=== PATIENT | male | born 1945 | race Caucasian/White ===

== ENCOUNTER → 2017-07-13 09:16 | Outpatient (CLI) | payer MEDICARE, OTHER, SELFPAY ==
[2017-07-13 11:02] LABS: ALB/GLOB Ratio 1.1 RATIO (0.9-2.4); AST(SGOT) 18 U/L (15-37); Alanine Aminotransfer ALT/SGPT 24 U/L (16-61); Albumin, Serum 4.1 g/dL (3.2-5.0); Alkaline Phosphatase 82 U/L (45-117); Anion Gap 4 (5-15); BUN 22 mg/dL (7-18); BUN/Creat Ratio 25.4 RATIO (10-20); Calcium,Total 8.6 mg/dL (8.5-10.1); Chloride 104 mmol/L (98-107); Cholesterol 165 mg/dL (200); Creatinine, Serum 0.87 mg/dL (0.70-1.30); EST Glomerular Filtration Rate 92 mL/min (>60); Est Glom Filt Rate - Afr Amer 111 mL/min (>60); Globulin 3.9 g/dL (2.2-4.2); Glucose 154 mg/dL (74-106); High Density Lipoprotein 42 mg/dL; Potassium 3.8 mmol/L (3.5-5.1); Sodium Level 139 mmol/L (136-145); Triglycerides 144 mg/dL; Very Low Density Lipoprotein 29 mg/dL (5-40)
== END ==
PROVIDERS: Family Provider Family Medicine; PCP Family Medicine; Visit Provider Family Medicine
DX: E11.9 Type 2 diabetes mellitus without complications (principal)
CPT/HCPCS: 36415; 80053; 80061

== ENCOUNTER → 2017-07-19 09:51 | Outpatient (CLI) | payer MEDICARE, OTHER, SELFPAY ==
--- NOTE | 2017-07-19 09:52 | ECHOD_ITS ---
Reason For Study: MURMUR Procedure This was a 2D Doppler, Color Flow transthoracic echocardiogram. Exam performed in department. Left Ventricle Normal size and thickness. The estimated ejection fraction is 65 %. Stage 1 diastolic dysfunction. No regional wall motion abnormalities noted. Right Ventricle Normal size and thickness. Normal systolic function. Atria Normal left atrium. Normal right atrium. Normal atrial septum. Mitral Valve Mild diffuse mitral valve thickening. Trivial mitral valve insufficiency. Tricuspid Valve Normal tricuspid valve. Mild (1+) tricuspid valve insufficiency. Right ventricular systolic pressure estimated to be 35 mmHg. Aortic Valve Trisinus/trileaflet aortic valve. Moderate diffuse aortic valve thickening. Mild restriction of the aortic valve. Mild aortic stenosis. Peak aortic valve gradient 19 mmHg. Mean aortic valve gradient 9 mmHg. Pulmonic Valve The pulmonic valve is not well visualized. Great Vessels Normal aortic root. Moderate atherosclerosis of the aortic arch. Normal inferior vena cava. Inferior vena cava collapse with sniff. Pericardium/Pleural No pericardial effusion. MMode/2D Measurements & Calculations LVIDd: 4.7 cm IVSd: 0.75 cm LVOT diam: 2.0 cm LVIDs: 2.4 cm LVPWd: 1.0 cm LVOT area: 3.2 cm2 RVDd: 3.5 cm FS: 48.5 % Ao root diam: 3.5 cm LAV(MOD-bp): 54.7 ml EDV(MOD-sp4): 117.4 ml LAV(MOD-bp) Indexed: 27.0 ml/m2 ESV(MOD-sp4): 45.3 ml LAV(MOD-sp2): 58.3 ml EF(MOD-sp4): 61.4 % LAV(MOD-sp4): 49.1 ml EDV(MOD-sp2): 78.2 ml SV(MOD-sp4): 72.1 ml SV(MOD-sp2): 48.0 ml EF(MOD-sp2): 61.4 % LA A4 area: 18.0 cm2 RA A4 area: 11.4 cm2 Doppler Measurements & Calculations MV E max jaya: 107.9 cm/sec Lat Peak E' Jaya: 6.5 cm/sec Med Peak E' Jaya: 5.7 cm/sec MV A max jaya: 131.7 cm/sec E/E' lat: 16.6 E/E' med: 19.0 MV E/A: 0.82 MV V2 max: 125.2 cm/sec Ao V2 max: 215.6 cm/sec LV V1 max: 156.2 cm/sec MV max P.3 mmHg Ao max P.6 mmHg LV V1 max P.8 mmHg MV V2 mean: 67.5 cm/sec Ao V2 mean: 140.3 cm/sec LV V1 mean P.1 mmHg MV mean P.2 mmHg Ao mean P.0 mmHg LV V1 mean: 105.4 cm/sec MV V2 VTI: 40.2 cm Ao V2 VTI: 44.8 cm LV V1 VTI: 35.7 cm MVA(VTI): 2.8 cm2 SAMANTHA(I,D): 2.6 cm2 SAMANTHA(V,D): 2.3 cm2 SV(LVOT): 114.4 ml PA V2 max: 104.8 cm/sec PI end-d jaya: 110.0 cm/sec TR max jaya: 255.0 cm/sec TR max P.0 mmHg Interpretation Summary The estimated ejection fraction is 65 %. Stage 1 diastolic dysfunction. Trivial mitral valve insufficiency. Mild (1+) tricuspid valve insufficiency. Right ventricular systolic pressure estimated to be 35 mmHg. Mild aortic stenosis. There is no comparison study available. Ordering Physician: Parish Oneil Referring Physician: Parish Oneil Performed By: Vernell Andersen RDCS, RVT
== END ==
PROVIDERS: Family Provider Family Medicine; PCP Family Medicine; Visit Provider Family Medicine
DX: R01.1 Cardiac murmur, unspecified (principal)
CPT/HCPCS: 93306

== ENCOUNTER → 2018-01-24 09:31 | Outpatient (CLI) | payer MEDICARE, OTHER, SELFPAY ==
[2018-01-24 10:39] LABS: Hematocrit 47.3 % (40-54); Hemoglobin 16.1 g/dl (13.0-16.5); Mean Corpuscular Hgb 30.1 pg (27.0-32.0); Mean Corpuscular Volume 88.6 fL (80-94); Platelet Count 187 K/mm3 (150-450); RBC Distribution Width SD 45.6 fl (35.1-43.9); Red Blood Count 5.34 M/mm3 (4.6-6.2); White Blood Count 6.7 K/mm3 (4.4-11.0)
[2018-01-24 10:40] LABS: Scan Indicated on CBC? Y/N NO
[2018-01-24 11:13] LABS: ALB/GLOB Ratio 0.9 RATIO (0.9-2.4); AST(SGOT) 18 U/L (15-37); Alanine Aminotransfer ALT/SGPT 29 U/L (16-61); Albumin, Serum 3.8 g/dL (3.2-5.0); Alkaline Phosphatase 85 U/L (45-117); Anion Gap 3 (5-15); BUN 21 mg/dL (7-18); BUN/Creat Ratio 22.7 RATIO (10-20); Calcium,Total 8.6 mg/dL (8.5-10.1); Chloride 103 mmol/L (98-107); Cholesterol 172 mg/dL (200); Creatinine, Serum 0.93 mg/dL (0.70-1.30); EST Glomerular Filtration Rate 85 mL/min (>60); Est Glom Filt Rate - Afr Amer 103 mL/min (>60); Ferritin 24 ng/mL (26-388); Globulin 4.2 g/dL (2.2-4.2); Glucose 148 mg/dL (74-106); High Density Lipoprotein 47 mg/dL; Iron 131 ug/dL (65-175); Potassium 3.6 mmol/L (3.5-5.1); Sodium Level 139 mmol/L (136-145); Triglycerides 100 mg/dL; Very Low Density Lipoprotein 20 mg/dL (5-40)
== END ==
PROVIDERS: Family Provider Family Medicine; PCP Family Medicine; Referring Provider Family Medicine; Visit Provider Family Medicine
DX: D64.9 Anemia, unspecified (principal); I10 Essential (primary) hypertension; E78.00 Pure hypercholesterolemia, unspecified
CPT/HCPCS: 36415; 80053; 80061; 82728; 83540; 85027

== ENCOUNTER 2018-07-06 19:59 | Emergency (ER) | payer MEDICARE, OTHER, SELFPAY ==
[2018-07-06 20:00] VITALS: BP 124/63; PULSE 73; RESP 15; TEMP 36.8; O2SAT 96; BMI 24.4
--- NOTE | 2018-07-06 20:04 | RAD_ITS ---
STUDY: X-RAY - RIGHT HAND REASON FOR EXAM: Male, 72 years old. Lawnmower accident TECHNIQUE: 3 view(s) of the hand. COMPARISON: None. FINDINGS: There has been amputation of a portion of each of the distal phalanges of the third fourth and fifth digits. There is near complete amputation of the distal phalanx of the third digit, approximately half of the distal phalanx of the fourth finger has been amputated and the distal tuft of the distal phalanx of the fifth finger has been amputated. There is associated soft tissue lacerations. No foreign body or osseous fragments noted. No other demonstrated fracture, joint spaces are preserved. RAD/Hand Min 3 Views IMPRESSION: The distal phalanges of the third fourth and fifth digits have undergone partial amputation as described above. Electronically Signed: Rick Álvarez MD at 21:25 EDT , Service support ,
[2018-07-06] MEDS: Diphth,Pertuss(Acell),Tet Vac 0.5 ML Vial IM (20:12)
--- NOTE | 2018-07-06 20:22 | ED.DCSUM_ITS ---
History of Present Illness Chief Complaint: Upper Extremity Injury Informant: Patient Onset: Today Context: Sudden Onset Quality: Amputation tip of the right long, ring and little finger Location: Right fingers Current Severity: Mild Maximum Severity: Moderate Worsened by: Injury Relieved by: Nothing Associated Symptoms: No associated symptoms Narrative: Patient is a 72-year-old [id number] male presents with injury to his right long, ring and little finger. This occurred on more blade. Patient's tetanus status is unknown. He brought the tips in. He denies any other symptoms. Denies antibiotic allergies. He denies history of diabetes. He denies history of peripheral arterial disease. Prior similar symptoms: No Recent Illness/Hospitalization: No Past Medical History - Allergies and Home Meds Allergies/Adverse Reactions: Allergies venom-honey bee [bee venom (honey bee)] Allergy (Verified 07/06/18 20:03) Hives Primary Care Physician: Ovidio Oneil MD [Primary Care Provider] - Prior records reviewed: Yes Past Medical History: - - Past medical history of type 2 diabetes, hypertension hypercholesterolemia Surgical History: noncontributory Smoking Status: Never smoker Alcohol: None Drugs: None Review of Systems General: Denies: Chills, Fever, Sweats Cardiovascular: Denies: Chest pain, Palpitations, Heart racing Respiratory: Denies: Dyspnea, Cough, Dyspnea on exertion Gastrointestinal: Denies: Nausea, Vomiting Skin: Reports: Wounds - Amputation distal aspect of the right long, ring and little finger. Denies: Rash, Abscess, Abrasions Neurological: Denies: Weakness, Parasthesia, Numbness Hematologic: Denies: Easy bruising, Easy bleeding Allergy: Denies: Uticaria - 8, Swelling of the mouth Physical Exam Vital Signs/Narrative: Vital Signs Temp Pulse Resp BP Pulse Ox 07/06/18 20:00 98.2 F 73 15 124/63 H 96 General: Well nourished, Well developed, No Acute Distress Head: Normocephalic, Atraumatic Eyes: Perrl, EOMI ENT: Moist mucous membranes, No rhinorrhea Neck: Supple, Nontender Cardiovascular: Regular rate, Regular rhythm, No murmurs, Normal S1, Normal S2 Respiratory: No distress, CTA bilaterally, Chest nontender Extremities: Tenderness - Amputation distal portion of the right ring, long and little finger. Skin: Normal color, Trauma Neurological: Alert, Oriented x3, Cranial nerves II-XII grossly intact, Normal Strength, Normal Sensation Psychological: Normal affect, Normal Mood Diagnostic/Tx/Re-eval Patient has comminuted distal open phalanx fracture right little finger. There is amputation of the distal portion of the distal phalanx right ring finger and essentially an entire amputation of distal phalanx right long finger. There is evidence of a traumatic arthrotomy - Medical Decision Making X-ray of the hand was obtained to determine extent of injury to the distal phalanx of involved digits. He received 1 g of Ancef IV piggyback. He is made n.p.o. Immunization was updated. He did receive 4 mg of Zofran and 4 mg of morphine for his discomfort. The flexor digitorum profundus and flexor digitorum superficialis were intact for the right little and ring finger. Patient had flexion at the DIP joint of the right long finger. Patient had extension of the right long finger, right ring and little finger as well. Procedures Procedure(s): The right hand was anesthetized by median nerve block and ulnar nerve block. Patient's hand was cleansed. The wounds were irrigated with 100- 150 cc each. The distal phalanx of the right little finger was rongeured to allow coverage. The nail of the right little finger was removed. 5-0 Vicryl was used to cover the distal phalanx. The distal phalanx of the right ring finger was rongeured to allow coverage of tissue. 5-0 Vicryl was used to close the wound. Bleeding stopped. The distal phalanx of the right long finger was removed. The articular surface of the middle phalanx was exposed. The area was covered. One stitch was placed to approximate the ends of the wound. Vaseline impregnated gauze covered all his wounds. The wounds were then covered with bacitracin ointment. A bulky hand dressing was applied. Patient was instructed not to remove the dressing until seen by Dr. Jose ferreira on Sunday. ED Disposition - Plan for ED Patient: Disposition: Home or Assisted Living Diagnosis: Amputation, fingers, 2-5, traumatic, with complication Instructions: ED Fx Finger Open Prescriptions: Oxycodone HCl/Acetaminophen [Percocet 5/325] 1 tab PO Q6H PRN PRN 3 Days #12 tab PRN Reason: Pain Cephalexin [Keflex] 500 mg PO 4X/DAY #20 cap Referrals: Ovidio Oneil MD [Primary Care Provider] - Jose Ferreira MD [STAFF PHYSICIAN] - 07/08/18 Additional Instructions: Call Dr. Jose ferreira's office Sunday to be seen Sunday
[2018-07-06] MEDS: Morphine 4 MG/ML Syringe IV (20:38)
[2018-07-06] MEDS: Ondansetron 4 MG/2 ML Vial IV (20:38)
[2018-07-06] MEDS: Cefazolin 1 GM/50 ML BAG IV (20:39)
[2018-07-06] MEDS: Cephalexin 250 MG Capsule 500 MG PO (22:10)
[2018-07-06 22:18] VITALS: BP 147/64; PULSE 83; RESP 17; O2SAT 97; O2SAT 98
[2018-07-06] MEDS: HYDROcodone Bitartrate/Apap 5/325 Tablet PO (22:26)
== END 2018-07-06 22:27 | disposition home or self-care (01) ==
PROVIDERS: Emergency Provider Emergency Medicine; Family Provider Family Medicine; PCP Family Medicine
DX: S68.112A Complete traumatic metacarpophalangeal amputation of right middle finger, initial encounter (principal); S68.116A Complete traumatic metacarpophalangeal amputation of right little finger, initial encounter; S68.110A Complete traumatic metacarpophalangeal amputation of right index finger, initial encounter; W31.89XA Contact with other specified machinery, initial encounter; Y93.9 Activity, unspecified; Y92.89 Other specified places as the place of occurrence of the external cause; Y99.8 Other external cause status; E11.9 Type 2 diabetes mellitus without complications; I10 Essential (primary) hypertension; E78.00 Pure hypercholesterolemia, unspecified
CPT/HCPCS: 26236; 73130; 90715; 96365; 96375; 99285; J7030; A4216; J2405

== ENCOUNTER 2018-07-10 11:38 | Day surgery (SDC) | payer MEDICARE, OTHER, SELFPAY ==
[2018-07-08 15:34] VITALS: BMI 23.8
[2018-07-10] VITALS (7 sets, daily range): BP systolic 138–159; BP diastolic 53–78; PULSE 69–84; RESP 14–18; TEMP 36.2–37.3; O2SAT 93–100; BMI 23.0
--- NOTE | 2018-07-10 12:32 | PCM.HP.BLA ---
History and Physical Date of Admission: 07/10/18 HISTORY OF PRESENT ILLNESS 72 year old man who is right hand dominant sustained traumatic tip amputations to his right long finger, right ring finger, and right small finger on 07/06/18 when his fingers got caught in a mower blade. He went to the ED and the wounds were washed out. Sutures were placed and there was soft tissue coverage over the remaining distal phalanx bone of the right small finger and right ring finger. The small remnant of distal phalanx of the right long finger was debrided in the ED with DIP joint surface exposed. Sutures were placed but could not cover the exposed bone. He was started on Keflex. Patient has diabetes mellitus. He presents today for further evaluation and treatment. PAST MEDICAL HISTORY Cataracts, bilateral (Acute) Diabetes (Acute) Family history of prostate problems (Acute) High cholesterol (Acute) Hives (Acute) Kidney stones (Acute) UTI (urinary tract infection) (Acute) High blood pressure (Chronic) PAST SURGICAL HISTORY H/O cataract removal with insertion of prosthetic lens (Acute) History of colonoscopy (Acute) History of excision of lesion (Acute) History of hernia repair (Acute) History of repair of retinal tear by laser photocoagulation (Acute) History of tonsillectomy (Acute) Kidney stones (Acute) ALLERGIES poison kulwant extract prednisone venom-honey bee [bee venom (honey bee)] MEDICATIONS Amlodipine [Norvasc] 10 mg PO QHS 05/16/15 [History Confirmed 07/10/18] Aspirin [Aspirin, Baby] 81 mg PO QHS 05/16/15 [History Confirmed 07/10/18] Benazepril/Hydrochlorothiazide [Lotensin Hct 20-12.5 mg Tablet] 1 ea PO DAILY 05/16/15 [History Confirmed 07/10/18] Cholecalciferol (VIT D3) [Vitamin D] 1,000 unit PO MOWE 05/16/15 [History Confirmed 07/10/18] Metformin HCl [Glucophage] 500 mg PO BIDCM 05/16/15 [History Confirmed 07/10/18] Simvastatin [Zocor] 5 mg PO QHS 05/16/15 [History Confirmed 07/10/18] Cephalexin [Keflex] 500 mg PO 4X/DAY #20 cap 07/06/18 [Rx Confirmed 07/10/18] Calcium Carbonate/Vitamin D3 [Calcium 600 + Vit D Tablet] 1 ea PO MOWEFR 07/09/18 [History Confirmed 07/10/18] Ferrous Sulfate [Iron] 325 mg PO TUTHSA 07/09/18 [History Confirmed 07/10/18] FAMILY HISTORY Other - Arthritis, Breast cancer, Diabetes, Heart disease, Hypertension SOCIAL HISTORY Smoking Status: Never smoker alcohol intake: never substance use type: does not use REVIEW OF SYSTEMS General - Denies fever, fatigue, and weight loss. Eyes - Has cataracts. Denies glaucoma. ENT - Denies nasal congestion and sore throat. Endocrine - Denies excessive thirst and urination. Has diabetes mellitus. Skin - Denies suspicious lesions and skin cancer. Musculoskeletal - Denies joint pain, joint stiffness, weakness of muscles and joints, back pain, and arthritis. Has tip amputations right long finger, right ring finger, and right small finger. Neuro - Denies headaches. Cardiovascular - Denies chest pain, fatigue, and shortness of breath with exertion. Psych - Denies anxiety and depression. Respiratory - Denies chronic cough and shortness of breath. Has sleep apnea. Gastrointestinal - Denies nausea, vomiting, diarrhea, and constipation. Hematologic - Denies abnormal bruising and bleeding. Genitourinary - Denies hematuria and urinary frequency. PHYSICAL EXAMINATION General - Alert and Oriented. HEENT - PERRL. EOMI. Throat is clear. Neck - Supple and nontender. No cervical adenopathy. Lungs - Clear to auscultation. Heart - Regular rate and rhythm. Abdomen - Soft and nondistended. Extremities - FROM left upper extremity. No axillary adenopathy. Radial pulses are palpable. On the right upper extremity in the hand are three tip amputations involving the right long finger, right ring finger, and right small finger. On the small finger, there is nail bed present. There is soft tissue subcutaneous tissue covering the bone. There was a distal fracture of the distal phalanx. Tendons are still intact. On the ring finger, there is soft tissue subcutaneous tissue covering the bone. Nail complex not present. There was a fracture of the mid portion of the distal phalanx. Tendons are still intact. On the long finger, there is exposed bone, articular surface of the DIP joint. There is mild swelling present. No evidence of infection. Neuro - CN II-XII grossly intact. Psych - Normal mood and affect. ASSESSMENT 1. 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 2. Partial traumatic transphalangeal amputation right ring finger through mid portion of distal phalanx. 3. Partial traumatic transphalangeal amputation right small finger through distal portion of distal phalanx. PLAN Xray reviewed. Continue Keflex. Will change to Doxycycline at the time of his surgery. Recommend operative intervention with revision amputation right long finger because of the exposed articular surface of DIP joint. Will shorten the finger into the middle phalanx in order to have enough soft tissue for closure. With injury to the bone and with bone exposure and being diabetic, he is at increased risk for osteomyelitis. Will evaluate the ring finger and small finger under anesthesia. Will irrigate the wounds. I will decide on the quality of the soft tissue coverage in order to determine if it is okay for wound care until healed or if soft tissue debridement is necessary in which case revision amputation would be necessary which would also mean shortening of the finger as well. Ideally it would be better if the soft tissue quality was adequate enough for healing to minimize any further bone shortening since the tendons are still attached to the proximal base of the distal phalanx. Will send tissue and bone to Pathology for analysis to evaluate for osteomyelitis and to Microbiology for culture. A positive culture will necessitate antibiotic therapy. Surgery will be scheduled in the next few days under general anesthesia on an outpatient basis. Patient was informed of the risks and complications of the procedure including alternatives to surgery. These were discussed with the patient personally. Patient voices understanding and wishes to proceed. Some of the risks and complications were included in a form from the [employer]. Some of the risks and complications that were discussed included but were not inclusive of failure to diagnose including symptom relief, pain, infection, numbness, stiffness, loss of digit, RSD (CRPS), need for further surgery, contracture, and wound healing problems.
[2018-07-10 12:46] LABS: Bedside Glucose 174 mg/dL (70-110)
[2018-07-10] MEDS: Cefazolin 2 GM in 0.9% Normal Saline 100 ML IV (13:14)
[2018-07-10] MEDS: Mupirocin Ointment 22gm Tube 1 APPLIC (15:36)
--- NOTE | 2018-07-10 15:43 | PCM.OPRPT ---
Report of Operation Date of Procedure: 07/10/18 Pre-Operative Diagnosis: 1. 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 2. Partial traumatic transphalangeal amputation right ring finger through mid portion of distal phalanx. 3. Partial traumatic transphalangeal amputation right small finger through distal portion of distal phalanx. Post-Operative Diagnosis: Same. Surgery/Procedure Performed:: 1. Revision amputation right long finger through proximal middle phalanx. 2. Revision amputation right ring finger through distal middle phalanx. 3. Revision amputation right small finger through DIP joint. Description of Surgical Findings:: 72 year old man who is right hand dominant sustained traumatic tip amputations to his right long finger, right ring finger, and right small finger on 07/06/18 when his fingers got caught in a mower blade. He went to the ED and the wounds were washed out. Sutures were placed and there was soft tissue coverage over the remaining distal phalanx bone of the right small finger and right ring finger. The small remnant of distal phalanx of the right long finger was debrided in the ED with DIP joint surface exposed. Sutures were placed but could not cover the exposed bone. He was started on Keflex. Patient has diabetes mellitus. Patient was informed of the risks and complications of the procedure including alternatives to surgery. These were discussed with the patient personally. Patient voices understanding and wishes to proceed. Some of the risks and complications were included in a form from the [employer]. Some of the risks and complications that were discussed included but were not inclusive of failure to diagnose including symptom relief, pain, infection, numbness, stiffness, loss of digit, RSD (CRPS), need for further surgery, contracture, and wound healing problems. Total tourniquet time - 90 minutes. project drilling engineer: None Type of Anesthesia:: General Specimen's removed: 1. Right long finger soft tissue and bone to Microbiology. 2. Right long finger amputation stump (soft tissue and bone) to Pathology. 3. Right ring finger soft tissue and bone to Microbiology. 4. Right ring finger amputation stump (soft tissue and bone) to Pathology. 5. Right small finger soft tissue and bone to Microbiology. 6. Right small finger amputation stump (soft tissue and bone) to Pathology. Drains: None. Estimated Blood Loss (mL): 10 ml. Description of Procedure: Patient was taken to OR in supine position and was placed under general anesthesia. The right hand was prepped and draped in the usual fashion. SCD's were placed for DVT prophylaxis. Perioperative antibiotics were given intravenously. Using xylocaine with epinephrine, the right hand was infiltrated with digital metacarpal blocks to the long finger, ring finger, and small finger. This will help with postoperative pain relief. The right hand was elevated and was wrapped with an Esmarch bandage as the tourniquet was inflated to 250 mmHg. Using loupe magnification, I removed the sutures from the ED. I examined the small finger and the ring finger. The soft tissue coverage was tenuous. I felt it would be better to proceed with revision amputations of all three fingers. I started with the long finger. I marked out anterior and posterior skin flaps in the middle phalanx. Dissection was carried down through the tendons to the bone. Using a periosteal elevator, I freed up the middle phalanx proximally to allow soft tissue coverage without tension. Using an oscillation saw, the bone was removed. Using an oscillating rasp, I smoothed out the bony edges. I dissected out the radial and ulnar digital nerves and placed them on stretch. I excised them and allowed them to retract more proximally to minimize neuroma formation. I then continued with the ring finger and then the small finger. For the ring finger, the dissection was similar to the long finger. I excised the bone through the distal middle phalanx. For the small finger, the dissection was similar to the long finger and the ring finger. I excised the bone through the DIP joint. Soft tissue and bone was taken from each finger and sent to Microbiology. A positive culture will necessitate antibiotic therapy. The amputation stump from each finger (soft tissue and bone) was sent to Pathology for analysis to rule out carcinoma and to evaluate for osteomyelitis. All three fingers were irrigated with saline. The tourniquet was released after 90 minutes. Hemostasis was obtained with electrocautery and gentle compression. I then closed all three fingers in a layered fashion using 5-0 Monocryl interrupted sutures for the deep dermis and subcutaneous tissue. The skin was approximated with 5-0 Nylon simple interrupted sutures. Antibiotic ointment was applied to the suture line followed by Xeroform gauze and 2x2 gauze followed by 2 inch Mandi wrap and Coban for compression. The skin flaps were viable with no evidence of vascular compromise. Patient tolerated the procedure well and was sent to PACU in satisfactory condition. Patient will be sent home on antibiotics and pain medication. Patient will followup in a week for a wound check and for discussion of the pathology report and for discussion of the Microbiology report. A positive culture may necessitate antibiotic therapy. The sutures will be removed in 2 weeks. Grafts/Implants Used: None. - Complications None. - Admit VTE Documentation VTE Present on Admission: No VTE Mechan Device Prophylaxis: SCD's VTE Pharm Prophylaxis ordered?: No Code Visit Surgery Charges CPT - 79951 ICD-10 - S68.612A, S68.624A, S68.626A 00322 S68.624A, S68.626A, S68.612A 54442 S68.626A, S68.612A, S68.624A
--- NOTE | 2018-07-10 15:48 | PCM.DC ---
You will use the following diet at home:: Calorie/Carbohydrate Controlled (specify 1200, 1400, etc) Discharge Activity: May not drive while taking narcotic pain medications., May Shower - wear plastic bag over right hand when showering. May shower in (days): 1 - wear plastic bag over right hand when showering. May resume sexual activity in: No Restrictions Weight Bearing Status: Weight bearing as tolerated Lifting Restrictions: 20 lbs. Keep extremity elevated above heart level: Right Arm Call your doctor if your incision/area has: Continuous Slow Oozing, Sudden Increased Bleeding, Increased Pain/ Swelling, Increased Redness, Foul Smelling Discharge, Swelling at the incision site Call your doctor if you observe: Fever of 101 or Higher, Coldness, Increased Pain, Shortness of breath, Chest pain, Calf discomfort, Uncontrolled pain Suture Line Care: - - after dressing removed in the office, apply antibiotic ointment to suture line daily. Change Dressing in (Days):: 7 - will change dressing in the office. Cleanse incision/area with: - - wear plastic bag over right hand when showering. Allergies/Adverse Reactions: Allergies poison kulwant extract Allergy (Verified 07/10/18 11:51) Itching prednisone Allergy (Verified 07/10/18 11:51) ALLERGY venom-honey bee [bee venom (honey bee)] Allergy (Verified 07/10/18 11:51) Hives Medications to take at Discharge Amlodipine [Norvasc] 10 mg PO QHS 05/16/15 Aspirin [Aspirin, Baby] 81 mg PO QHS 05/16/15 Benazepril/Hydrochlorothiazide [Lotensin Hct 20-12.5 mg Tablet] 1 each PO DAILY 05/16/15 Cholecalciferol (VIT D3) [Vitamin D3] 1,000 unit PO MOWE 05/16/15 Metformin HCl [Glucophage] 500 mg PO BIDCM 05/16/15 Simvastatin [Zocor] 5 mg PO QHS 05/16/15 Calcium Carbonate/Vitamin D3 [Calcium 600 + Vit D Tablet] 1 each PO MOWEFR 07/09/18 Ferrous Sulfate [Iron] 325 mg PO TUTHSA 07/09/18 Doxycycline [Vibramycin] 100 mg PO BID #28 cap 07/10/18 Lactobacillus Acidophilus/Fos [Acidophilus Probiotic Tablet] 1 ea PO BID #30 tab 04/17/19 Oxycodone HCl/Acetaminophen [Percocet 5/325] 1 - 2 tab PO 4X/DAY PRN PRN 7 Days #50 tab 07/10/18 The following prescriptions were given: Oxycodone HCl/Acetaminophen [Percocet 5/325] 1 - 2 tab PO 4X/DAY PRN PRN 7 Days #50 tab PRN Reason: Pain Doxycycline [Vibramycin] 100 mg PO BID #28 cap Lactobacillus Acidophilus/Fos [Acidophilus Probiotic Tablet] 1 ea PO BID #30 tab Primary Care Physician: Ovidio Oneil MD [Primary Care Provider] - Test Results: Test results from this visit will be discussed in further detail at your follow-up appointment, if applicable. Please Follow Up With: Jose Ferreira MD When: one week. call [phone] for appt. Proposed Discharge Date: 07/10/18
--- NOTE | 2018-07-10 15:51 | DCINST_ITS ---
You will use the following diet at home:: Calorie/Carbohydrate Controlled (specify 1200, 1400, etc) Discharge Activity: May not drive while taking narcotic pain medications., May Shower - wear plastic bag over right hand when showering. May shower in (days): 1 - wear plastic bag over right hand when showering. May resume sexual activity in: No Restrictions Weight Bearing Status: Weight bearing as tolerated Lifting Restrictions: 20 lbs. Keep extremity elevated above heart level: Right Arm Call your doctor if your incision/area has: Continuous Slow Oozing, Sudden Increased Bleeding, Increased Pain/ Swelling, Increased Redness, Foul Smelling Discharge, Swelling at the incision site Call your doctor if you observe: Fever of 101 or Higher, Coldness, Increased Pain, Shortness of breath, Chest pain, Calf discomfort, Uncontrolled pain Suture Line Care: - - after dressing removed in the office, apply antibiotic ointment to suture line daily. Change Dressing in (Days):: 7 - will change dressing in the office. Cleanse incision/area with: - - wear plastic bag over right hand when showering. Allergies/Adverse Reactions: Allergies poison kulwant extract Allergy (Verified 07/10/18 11:51) Itching prednisone Allergy (Verified 07/10/18 11:51) ALLERGY venom-honey bee [bee venom (honey bee)] Allergy (Verified 07/10/18 11:51) Hives Medications to take at Discharge Amlodipine [Norvasc] 10 mg PO QHS 05/16/15 Aspirin [Aspirin, Baby] 81 mg PO QHS 05/16/15 Benazepril/Hydrochlorothiazide [Lotensin Hct 20-12.5 mg Tablet] 1 each PO DAILY 05/16/15 Cholecalciferol (VIT D3) [Vitamin D3] 1,000 unit PO MOWE 05/16/15 Metformin HCl [Glucophage] 500 mg PO BIDCM 05/16/15 Simvastatin [Zocor] 5 mg PO QHS 05/16/15 Calcium Carbonate/Vitamin D3 [Calcium 600 + Vit D Tablet] 1 each PO MOWEFR 07/09/18 Ferrous Sulfate [Iron] 325 mg PO TUTHSA 07/09/18 Doxycycline [Vibramycin] 100 mg PO BID #28 cap 07/10/18 Lactobacillus Acidophilus/Fos [Acidophilus Probiotic Tablet] 1 ea PO BID #30 tab 04/17/19 Oxycodone HCl/Acetaminophen [Percocet 5/325] 1 - 2 tab PO 4X/DAY PRN PRN 7 Days #50 tab 07/10/18 The following prescriptions were given: Oxycodone HCl/Acetaminophen [Percocet 5/325] 1 - 2 tab PO 4X/DAY PRN PRN 7 Days #50 tab PRN Reason: Pain Doxycycline [Vibramycin] 100 mg PO BID #28 cap Lactobacillus Acidophilus/Fos [Acidophilus Probiotic Tablet] 1 ea PO BID #30 tab Primary Care Physician: Ovidio Oneil MD [Primary Care Provider] - Test Results: Test results from this visit will be discussed in further detail at your follow- up appointment, if applicable. Please Follow Up With: Jose Ferreira MD When: one week. call [phone] for appt. Proposed Discharge Date: 07/10/18
[2018-07-10 16:21] LABS: Bedside Glucose 166 mg/dL (70-110)
--- NOTE | 2018-07-11 | AMP_PTH ---
PATIENT: YAIR VINCENT [place] [facility] [place][id number] AGE/SX: 72/M ROOM: RE07/10/[address]: Dr. Jose Ferreira MD : 1945 BED: DIS: 07/10/2018 SPEC #: [id number] RECD: 07/11/18 14:26 STATUS: [place] REVivi #: [id number] FEI: 07/11/18 00:[address]: Jose Ferreira DEPT: SURGICAL PATHOLOGY RECD BY: Rex Sheppard ENTERED: 07/11/18 14:28 SP TYPE: Amputation OTHR DR: Dr. Parish Oneil MD Tissues: A - Finger, NOS B - Finger, NOS C - Finger, NOS Procedures: Decalcification bone/plaque Surgery Specimen Level III HEADER OPERATION: Revision amputation long finger, poss. rev. 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 Amputation stump soft tissue and bone right longer finger: Focal ulceration, associated acute inflammation and reactive changes. Bone with reactive changes. B. Amputation stump soft tissue and bone right ring finger: Focal ulceration, associated acute inflammation and reactive changes. Bone with reactive changes. C. Amputation stump soft tissue and bone right small finger: Skin with underlying soft tissue with focal hyperkeratosis. Bone with focal reactive changes. SJ:rosemary 07/18/18 MICROSCOPIC DESCRIPTION Slides are reviewed. GROSS DESCRIPTION A - Received in fixative is one container labeled with the patient's name and designated amputation stump soft tissue and bone right longer finger. The specimen consists of multiple pieces of skin, soft tissue and bone that in aggregate measure 3.5 x 2 x 1 cm. The larger piece of skin shows a circular defect. The pieces of bone measure in aggregate 2.5 x 1 x 0.5 cm. Animal Biologist sections are submitted in two cassettes as follows: 1 - skin and soft tissue, 2 - bone entirely submitted after decalcification. B - Received in fixative is one container labeled with the patient's name and designated amputation stump soft tissue and bone right ring finger. The specimen consists of multiple pieces of skin with underlying tissue measuring 3 x 2 x 1 cm. Also present in the container are two pieces of bone that in aggregate measure 1.5 x 2 x 0.1 cm. Animal Biologist sections are submitted in two cassettes as follows: 1 - skin and soft tissue, 2 - bone, entirely submitted after decalcification. C - Received in fixative is one container labeled with the patient's name and designated amputation stump soft tissue and bone right small finger. The specimen consists of a portion of digit/finger measuring 2 x 2 x 1 cm. A portion of nail is noted at the tip. The entire specimen is submitted in two cassettes as follows: 1 - soft tissue, 2 - bone after decalcification. / SJ:rg 07/11/18 TC:2 CPT: 65902 x3, 64421 x3
== END 2018-07-10 17:57 | disposition home or self-care (01) ==
LOC: SDC 11:39 → AC 11:40
PROVIDERS: Family Provider Family Medicine; PCP Family Medicine; Referring Provider Surgery; Visit Provider Surgery
PROC: (CPT 26951; principal; 2018-07-10 12:45)
DX: S68.612A Complete traumatic transphalangeal amputation of right middle finger, initial encounter (principal); S68.624A Partial traumatic transphalangeal amputation of right ring finger, initial encounter; S68.626A Partial traumatic transphalangeal amputation of right little finger, initial encounter; E11.9 Type 2 diabetes mellitus without complications; I10 Essential (primary) hypertension
CPT/HCPCS: 01830; 26951 ×2; 82962; 87015; 87070; 87075; 87077; 87102; 87116; 87205; 87206; 88304; 88305; 88311; J7120; J2405

== ENCOUNTER → 2018-07-25 12:18 | Outpatient (CLI) | payer MEDICARE, OTHER, SELFPAY ==
[2018-07-24 09:01] VITALS: BMI 23.0
[2018-07-25 15:08] LABS: ALB/GLOB Ratio 1.1 RATIO (0.9-2.4); AST(SGOT) 19 U/L (15-37); Alanine Aminotransfer ALT/SGPT 19 U/L (16-61); Alkaline Phosphatase 74 U/L (45-117); Anion Gap 5 (5-15); BUN 20 mg/dL (7-18); BUN/Creat Ratio 20.2 RATIO (10-20); Calcium,Total 8.7 mg/dL (8.5-10.1); Chloride 102 mmol/L (98-107); Creatinine, Serum 0.99 mg/dL (0.70-1.30); EST Glomerular Filtration Rate 78 mL/min (>60); Est Glom Filt Rate - Afr Amer 95 mL/min (>60); Globulin 3.7 g/dL (2.2-4.2); Glucose 152 mg/dL (74-106); PSA,Total - Annual Screen 1.53 ng/mL (0.00-4.00); Potassium 3.7 mmol/L (3.5-5.1); Protein, Total 7.7 g/dL (6.4-8.2); Sodium Level 135 mmol/L (136-145); Thyroid Stim Hormone (TSH) 0.86 uIU/mL (0.358-3.74)
== END ==
PROVIDERS: Family Provider Family Medicine; PCP Family Medicine; Referring Provider Family Medicine; Visit Provider Family Medicine
DX: E11.9 Type 2 diabetes mellitus without complications (principal); E78.00 Pure hypercholesterolemia, unspecified; Z12.5 Encounter for screening for malignant neoplasm of prostate; I10 Essential (primary) hypertension
CPT/HCPCS: 36415; 80053; 84153; 84403; 84443; G0103

== ENCOUNTER → 2018-08-20 14:21 | Outpatient (CLI) | payer MEDICARE, OTHER, SELFPAY ==
[2018-08-14 09:04] VITALS: BMI 23.0
[2018-08-20 16:18] LABS: AST(SGOT) 22 U/L (15-37); Alanine Aminotransfer ALT/SGPT 28 U/L (16-61); Albumin, Serum 3.8 g/dL (3.2-5.0); Alkaline Phosphatase 71 U/L (45-117); Anion Gap 8 (5-15); BUN 25 mg/dL (7-18); Calcium,Total 8.6 mg/dL (8.5-10.1); Chloride 104 mmol/L (98-107); Creatinine, Serum 1.19 mg/dL (0.70-1.30); EST Glomerular Filtration Rate 63 mL/min (>60); Est Glom Filt Rate - Afr Amer 77 mL/min (>60); Globulin 3.7 g/dL (2.2-4.2); Glucose 215 mg/dL (74-106); Potassium 3.7 mmol/L (3.5-5.1); Protein, Total 7.5 g/dL (6.4-8.2); Sodium Level 140 mmol/L (136-145)
== END ==
PROVIDERS: Family Provider Family Medicine; PCP Family Medicine; Referring Provider Nurse Practitioner Family; Visit Provider Nurse Practitioner Family
DX: S68.612A Complete traumatic transphalangeal amputation of right middle finger, initial encounter (principal); S68.626A Partial traumatic transphalangeal amputation of right little finger, initial encounter; S68.624A Partial traumatic transphalangeal amputation of right ring finger, initial encounter
CPT/HCPCS: 36415; 80053

== ENCOUNTER → 2018-09-27 11:25 | Outpatient (CLI) | payer MEDICARE, OTHER, SELFPAY ==
[2018-09-11 14:21] VITALS: BMI 23.0
[2018-09-27 13:28] LABS: BUN 22 mg/dL (7-18); Creatinine, Serum 1.16 mg/dL (0.70-1.30); Glucose 145 mg/dL (74-106)
[2018-09-27 13:29] LABS: ALB/GLOB Ratio 1.1 RATIO (0.9-2.4); AST(SGOT) 14 U/L (15-37); Alanine Aminotransfer ALT/SGPT 17 U/L (16-61); Albumin, Serum 3.9 g/dL (3.2-5.0); Alkaline Phosphatase 78 U/L (45-117); Anion Gap 5 (5-15); Calcium,Total 9.2 mg/dL (8.5-10.1); Chloride 104 mmol/L (98-107); EST Glomerular Filtration Rate 65 mL/min (>60); Est Glom Filt Rate - Afr Amer 79 mL/min (>60); Globulin 3.6 g/dL (2.2-4.2); Potassium 3.8 mmol/L (3.5-5.1); Protein, Total 7.5 g/dL (6.4-8.2); Sodium Level 137 mmol/L (136-145)
== END ==
PROVIDERS: Family Provider Family Medicine; PCP Family Medicine; Referring Provider Nurse Practitioner Family; Visit Provider Nurse Practitioner Family
DX: S68.612A Complete traumatic transphalangeal amputation of right middle finger, initial encounter (principal); S68.626A Partial traumatic transphalangeal amputation of right little finger, initial encounter; S68.624A Partial traumatic transphalangeal amputation of right ring finger, initial encounter
CPT/HCPCS: 36415; 80053

== ENCOUNTER 2018-11-15 08:00 | Outpatient (RCR) | payer MEDICARE, OTHER, SELFPAY ==
[2018-10-02 08:48] VITALS: BMI 23.0
--- NOTE | 2018-10-09 14:24 | HP.OTEVAL ---
Patient's Visit Information YAIR VINCENT is a 72 year old M, referred to Occupational Therapy by Rylee Olivarez, YANA, with a diagnosis of amputation of right MF,RF,LF. Date of Evaluation: 10/08/18 Occupational Therapist: Rosina Hardwick, RANJIT/José Luis, CHT - Subjective Subjective: This 72 year old male was seen for initial OT eval with dx of right IF, MF, IF amputation. 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 Pt is right handed. PT states he is able to do most ADLs due to use of left hand. - Pain right hand 3 Pain Intensity Range: 1, 5 - ROM ROM Comments: rigth MF PIP -5/35. right RF PIP -5/40. right LF PIP -20/38. pt demo with limit PIP flex and limited digit ext, this was possible prior to injury as he has dupuytren's contracture of bilateral RF/LF - Strength Victim Witness Administrator: right 22# left 80# Lateral Pinch: right 16# left 20# Tripod Pinch: right 10# left 16# - Edema PIP: right MF 73/left 6.3 - Sensation Sensation Comments: pt states he is able to tolerate different textures at this time. feels the sensitivity is doing better than it was two weeks ago. 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 Goal:: PT will demo the ability to hold different size objects to increase pts ind. with ADL, IADLs by d/c - Rehabilitation General Assessment: Postop visit from his surgery on 07/10/18 where he underwent revision amputation right long finger through proximal middle phalanx and revision amputation right ring finger through distal middle phalanx and revision amputation right small finger through DIP joint. Today pt demo with edema and limited PIP ROM that limits his ind. with ADLs and IADLS. pt would benefit from skill OT services 1-2x week for 6 weeks to return pt to PLOF. Today pt was ed. on Blocking ex. to PIP, edema control by use of co-band. Pt was given handout and demo understanding and agree to POC. Rehabilitation Potential: Good - Anticipated Interventions Anticipated Interventions: A/AAROM/PROM, Strengthening, Edema Control, Desensitization, Sensory Retraining, Modalities, Orthoses - Visit Plan Frequency: 1-2x /Week Duration: 6 Weeks TEXT: Thank you for the opportunity to evaluate your patient. For Medicare and Medicare HMO plans, please review the plan of care and approve it. It will need to be FAXED BACK to us at [phone] for Medicare purposes. Please let me know if there are questions or concerns regarding this plan of care. Physician Signature: Date:
--- NOTE | 2018-11-15 08:28 | HP.OTDCSUM_ITS ---
HP - OT D/C Summary It has been my pleasure to treat YAIR VINCENT under orders from YANA Chinchilla, for the diagnosis of amputation of right MF,RF,LF for a total of 11 visit(s). Please see the following information for a summary of their discharge status. - Overall Improvement % Improvement: 90 - Objective Objective/Function: right 45# initial was 22#. left 85#. right lateral pinch 16#. right tip pinch 8#. MF mcp flex 90 PIP flex 60* initial was 35*. RF MCP flex 95*PIP flex 70* intial was 40*. 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 Goal:: PT will demo the ability to hold different size objects to increase pts ind. with ADL, IADLs by d/c - Plan Plan: D/C - D/C Information Discharge Comments: This pt was seen for 11 OT visits following a right MF/RF & LF amputation. PT made gains with ROM and strength of right hand- pt has returned to his daily occupations with accomidations for right health counselor to become ESTEFANI with all daily tasks. PT has met goals in OT and is D/C at this time. If there are questions or concerns regarding this patient's occupational therapy, please fell free to call me at [phone]. Thank you for the referral of this patient. Sincerely, Rosina Hardwick, OTR/L, CHT
== END 2018-11-15 19:00 | disposition home or self-care (01) ==
LOC: OT 08:00
PROVIDERS: Family Provider Family Medicine; PCP Family Medicine; Referring Provider Nurse Practitioner Family; Visit Provider Nurse Practitioner Family
DX: S68.61 Complete traumatic transphalangeal amputation of other and unspecified finger(s) (principal); S68.624D Partial traumatic transphalangeal amputation of right ring finger, subsequent encounter; S68.626D Partial traumatic transphalangeal amputation of right little finger, subsequent encounter
CPT/HCPCS: 97110; 97140; 97166; 97530

== ENCOUNTER 2019-02-26 11:47 | Emergency (ER) | payer MEDICARE, OTHER, SELFPAY ==
[2018-11-15 08:37] VITALS: BMI 23.0
[2019-02-26 11:47] VITALS: BP 160/83; PULSE 89; RESP 18; TEMP 36.6; O2SAT 96; BMI 23.3
--- NOTE | 2019-02-26 12:02 | ED.DCSUM_ITS ---
History of Present Illness Chief Complaint: Laceration Informant: Patient Onset: Today Current Severity: Mild Narrative: Tablesaw injury to the tip of the left middle and ring finger, earlier this year he had extensive lacerations and amputations to the right hand fingers, he is ambidextrous tetanus is up-to-date presents for evaluation no loss of function these injury involves just the tip of these fingers Past Medical History - Allergies and Home Meds Allergies/Adverse Reactions: Allergies bee venom protein (honey bee) Allergy (Intermediate, Verified 02/26/19 11:50) swelling poison kulwant extract Allergy (Intermediate, Verified 02/26/19 11:50) rash Primary Care Physician: Ovidio Oneil MD [Primary Care Provider] - Past Medical History: - - As above Surgical History: noncontributory Smoking Status: Never smoker Review of Systems General: Denies: Chills, Fever, Sweats Eyes: Denies: Visual changes - bilaterally, Diplopia ENT: Denies: Rhinorrhea, Sore throat Cardiovascular: Denies: Chest pain, Palpitations Respiratory: Denies: Dyspnea, Cough, Dyspnea on exertion Gastrointestinal: Denies: Abdominal pain, Nausea, Vomiting, Diarrhea, Melena, Hematochezia Genitourinary: Denies: Dysuria, Hematuria, Frequency Musculoskeletal: Denies: Back pain, Extremity Pain Skin: Denies: Rash, Wounds Neurological: Denies: Headache, Weakness, Numbness Psych: Denies: Depression Allergy: Denies: Uticaria Physical Exam Vital Signs/Narrative: Vital Signs Temp Pulse Resp BP Pulse Ox 02/26/19 11:47 97.9 F 89 18 160/83 H 96 General: Well nourished, Well developed, No Acute Distress Head: Normocephalic, Atraumatic Eyes: Perrl, EOMI ENT: Moist mucous membranes, No rhinorrhea Neck: Supple, Nontender Cardiovascular: Regular rate, Regular rhythm, No murmurs Respiratory: No distress, CTA bilaterally, Chest nontender Abdomen: Soft, Nontender, Nondistended, Normal bowel sounds Back: Nontender, Normal Inspection Extremities: Nontender, No edema, - - He has what appears to be some loss of tissue to the tip of the index finger and an abrasion to the tip of the left ring finger, the nail and nailbed are intact he may have nipped the very tip of the nail but the bed is intact without pain DIP PIP MCP flexion extension normal to all hand digits left Skin: Normal color, No rash Neurological: Alert, Oriented x3, Cranial nerves II-XII grossly intact, Normal Strength, Normal Sensation Psychological: Normal affect, Normal Mood Diagnostic/Tx/Re-eval - Medical Decision Making Given the above x-rays obtained wound care The x-ray per radiology shows no obvious bony injury, I explained the patient the concept of occult injury, there is no obvious signs of exposed bone, there is no pain, he will be started on [facility] wound care antibiotic dressing splint Keflex in the follow-up with Dr. celis who he seen in the past for his right hand injury and return for change in symptoms Home stable Left long and ring finger distal fingertip lacerations ED Disposition - Plan for ED Patient: Instructions: LACERATION, All, LACERATION, Hand Prescriptions: Cephalexin [Keflex] 500 mg PO Q6 #40 cap Prescription Printed Referrals: Ovidio Oneil MD [Primary Care Provider] - Jose Ferreira MD [STAFF PHYSICIAN] -
--- NOTE | 2019-02-26 12:21 | RAD_ITS ---
STUDY: X-RAY - LEFT HAND REASON FOR EXAM: Male, 73 years old. Lacerations overlying the left third and fourth digits. TECHNIQUE: 3 view(s) of the hand. COMPARISON: None. FINDINGS: Normal radiocarpal articulation. Normal distal radioulnar joint. Normal visualized carpal bones. Normal carpal articulations Normal carpometacarpal articulation of the thumb. Normal second through fifth carpometacarpal joints. Normal metacarpi. Normal metacarpophalangeal joint of the thumb. Normal interphalangeal joint of the thumb. Normal proximal and distal phalanges of the thumb. Normal metacarpophalangeal joints of the second through fifth fingers. Normal proximal and distal interphalangeal joints of the second through fifth fingers. Normal phalanges of the second through fifth fingers. Soft tissue laceration overlying the tuft of the distal phalanx of the third digit. No radiopaque foreign body is seen. RAD/Hand Min 3 Views IMPRESSION: Soft tissue laceration overlying the tuft of the distal phalanx of the third digit. Electronically Signed: Buddy Ruth, at 12:49 EST , Service support ,
[2019-02-26] MEDS: Cephalexin 250 MG Capsule 500 MG PO (13:54)
[2019-02-26 13:56] VITALS: BP 132/70; PULSE 79
== END 2019-02-26 13:58 | disposition home or self-care (01) ==
LOC: ED 12:08
PROVIDERS: Emergency Provider Emergency Medicine; Family Provider Family Medicine; PCP Family Medicine
DX: S61.215A Laceration without foreign body of left ring finger without damage to nail, initial encounter (principal); S61.213A Laceration without foreign body of left middle finger without damage to nail, initial encounter; X58.XXXA Exposure to other specified factors, initial encounter; Y93.89 Activity, other specified; Y92.89 Other specified places as the place of occurrence of the external cause; Y99.9 Unspecified external cause status
CPT/HCPCS: 73130; 99283

== ENCOUNTER → 2019-11-27 08:41 | Outpatient (CLI) | payer MEDICARE, OTHER, SELFPAY ==
[2019-04-03 15:31] VITALS: BMI 23.3
[2019-11-27 09:55] LABS: Hematocrit 42.4 % (40-54); Hemoglobin 13.8 g/dL (13.0-16.5); Mean Corp Hgb Conc 32.5 g/dL (32-36); Mean Corpuscular Hgb 28.9 pg (27.0-32.0); Mean Corpuscular Volume 88.7 fL (80-94); Mean Platelet Vol. 11.5 fl (6.2-12.0); Platelet Count 190 K/mm3 (150-450); RBC Distribution Width CV 12.8 % (11.6-14.6); RBC Distribution Width SD 41.6 fl (35.1-43.9); Red Blood Count 4.78 M/mm3 (4.6-6.2); White Blood Count 6.9 K/mm3 (4.4-11.0)
[2019-11-27 10:21] LABS: Vitamin B12 358 pg/mL (211-911)
[2019-11-27 10:24] LABS: Hemoglobin A1c 6.6 % (3.8-5.6)
[2019-11-27 10:33] LABS: ALB/GLOB Ratio 1.1 RATIO (0.9-2.4); AST(SGOT) 14 U/L (15-37); Alanine Aminotransfer ALT/SGPT 16 U/L (16-61); Albumin, Serum 4.1 g/dL (3.2-5.0); Alkaline Phosphatase 60 U/L (45-117); Anion Gap 3 (5-15); BUN 27 mg/dL (7-18); BUN/Creat Ratio 26.2 RATIO (10-20); Calcium,Total 8.9 mg/dL (8.5-10.1); Chloride 104 mmol/L (98-107); Cholesterol 153 mg/dL (200); Creatinine, Serum 1.03 mg/dL (0.70-1.30); EST Glomerular Filtration Rate 75 mL/min (>60); Est Glom Filt Rate - Afr Amer 90 mL/min (>60); Ferritin 13 ng/mL (26-388); Globulin 3.6 g/dL (2.2-4.2); Glucose 130 mg/dL (74-106); High Density Lipoprotein 45 mg/dL; Iron 84 ug/dL (65-175); Potassium 3.6 mmol/L (3.5-5.1); Protein, Total 7.7 g/dL (6.4-8.2); Sodium Level 138 mmol/L (136-145); Thyroid Stim Hormone (TSH) 0.96 uIU/mL (0.358-3.74); Triglycerides 87 mg/dL; Very Low Density Lipoprotein 17 mg/dL (5-40)
== END ==
PROVIDERS: PCP Family Medicine; Referring Provider Family Medicine; Visit Provider Family Medicine
DX: E11.9 Type 2 diabetes mellitus without complications (principal); E53.8 Deficiency of other specified B group vitamins; R79.0 Abnormal level of blood mineral
CPT/HCPCS: 36415; 80053; 80061; 82607; 82728; 83036; 83540; 84443; 85027

== ENCOUNTER → 2020-11-03 10:34 | Outpatient (CLI) | payer MEDICARE, OTHER, SELFPAY ==
[2019-04-03 15:31] VITALS: BMI 23.3
[2020-11-03 15:20] LABS: Hematocrit 45.6 % (40-54); Hemoglobin 15.2 g/dL (13.0-16.5); Mean Corp Hgb Conc 33.3 g/dL (32-36); Mean Corpuscular Hgb 29.9 pg (27.0-32.0); Mean Corpuscular Volume 89.6 fL (80-94); Mean Platelet Vol. 11.8 fl (6.2-12.0); Platelet Count 190 K/mm3 (150-450); RBC Distribution Width CV 12.9 % (11.6-14.6); RBC Distribution Width SD 42.6 fl (35.1-43.9); Red Blood Count 5.09 M/mm3 (4.6-6.2); White Blood Count 7.7 K/mm3 (4.4-11.0)
[2020-11-03 15:42] LABS: Vitamin B12 394 pg/mL (211-911)
[2020-11-03 15:51] LABS: ALB/GLOB Ratio 1.2 RATIO (0.9-2.4); AST(SGOT) 17 U/L (15-37); Alanine Aminotransfer ALT/SGPT 23 U/L (16-61); Albumin, Serum 4.1 g/dL (3.2-5.0); Alkaline Phosphatase 66 U/L (45-117); Anion Gap 7 (5-15); BUN 31 mg/dL (7-18); BUN/Creat Ratio 28.7 RATIO (10-20); Calcium,Total 8.9 mg/dL (8.5-10.1); Chloride 102 mmol/L (98-107); Creatinine, Serum 1.08 mg/dL (0.70-1.30); EST Glomerular Filtration Rate 71 mL/min (>60); Est Glom Filt Rate - Afr Amer 85 mL/min (>60); Globulin 3.5 g/dL (2.2-4.2); Glucose 144 mg/dL (74-106); Potassium 3.7 mmol/L (3.5-5.1); Protein, Total 7.6 g/dL (6.4-8.2); Sodium Level 137 mmol/L (136-145); Thyroid Stim Hormone (TSH) 0.77 uIU/mL (0.358-3.74)
== END ==
PROVIDERS: PCP Family Medicine; Referring Provider Family Medicine; Visit Provider Family Medicine
DX: E11.9 Type 2 diabetes mellitus without complications (principal); E53.8 Deficiency of other specified B group vitamins
CPT/HCPCS: 36415; 80053; 82607; 84443; 85027

== ENCOUNTER 2021-04-13 13:38 | Outpatient (CLI) | payer MEDICARE, SELFPAY ==
[2021-04-13 18:59] LABS: ALB/GLOB Ratio 1.4 RATIO (0.9-2.4); AST(SGOT) 15 U/L (15-37); Alanine Aminotransfer ALT/SGPT 27 U/L (16-61); Albumin, Serum 4.3 g/dL (3.2-5.0); Alkaline Phosphatase 76 U/L (45-117); Anion Gap 9 (5-15); BUN 25 mg/dL (7-18); BUN/Creat Ratio 21.6 RATIO (10-20); Calcium,Total 9.2 mg/dL (8.5-10.1); Chloride 100 mmol/L (98-107); Creatinine, Serum 1.16 mg/dL (0.70-1.30); EST Glomerular Filtration Rate 65 mL/min (>60); Est Glom Filt Rate - Afr Amer 78 mL/min (>60); Glucose 206 mg/dL (74-106); Potassium 4.3 mmol/L (3.5-5.1); Protein, Total 7.3 g/dL (6.4-8.2); Sodium Level 140 mmol/L (136-145)
[2021-04-14 09:00] LABS: Cholesterol 158 mg/dL (200); High Density Lipoprotein 45 mg/dL; Triglycerides 203 mg/dL; Very Low Density Lipoprotein 41 mg/dL (5-40)
[2021-04-14 09:06] LABS: Vitamin B12 333 pg/mL (211-911)
== END 2021-04-13 23:59 | disposition short-term general hospital (02) ==
PROVIDERS: PCP Family Medicine; Referring Provider Family Medicine; Visit Provider Family Medicine
DX: E11.69 Type 2 diabetes mellitus with other specified complication (principal); E78.5 Hyperlipidemia, unspecified; E53.8 Deficiency of other specified B group vitamins
CPT/HCPCS: 36415; 80053; 80061; 82607

== ENCOUNTER → 2022-08-02 | Outpatient (CLI) | payer MEDICARE, SELFPAY ==
[2022-08-02 10:42] LABS: Vitamin B12 351 pg/mL (211-911)
[2022-08-02 10:43] LABS: ALB/GLOB Ratio 1.1 RATIO (0.9-2.4); AST(SGOT) 17 U/L (15-37); Alanine Aminotransfer ALT/SGPT 22 U/L (16-61); Albumin, Serum 4.1 g/dL (3.2-5.0); Alkaline Phosphatase 69 U/L (45-117); Anion Gap 11 (5-15); BUN 21 mg/dL (7-18); BUN/Creat Ratio 18.9 RATIO (10-20); Calcium,Total 9.3 mg/dL (8.5-10.1); Chloride 103 mmol/L (98-107); Cholesterol 160 mg/dL (200); Creatinine, Serum 1.11 mg/dL (0.70-1.30); EST Glomerular Filtration Rate 68 mL/min (>60); Est Glom Filt Rate - Afr Amer 82 mL/min (>60); Globulin 3.7 g/dL (2.2-4.2); Glucose 140 mg/dL (74-106); High Density Lipoprotein 44 mg/dL; Potassium 3.9 mmol/L (3.5-5.1); Protein, Total 7.8 g/dL (6.4-8.2); Sodium Level 141 mmol/L (136-145); Thyroid Stim Hormone (TSH) 1.03 uIU/mL (0.358-3.74); Triglycerides 116 mg/dL; Very Low Density Lipoprotein 23 mg/dL (5-40)
== END | disposition home or self-care (01) ==
LOC: MFPLAB 08:42
PROVIDERS: PCP Family Medicine; Visit Provider Family Medicine
DX: E11.9 Type 2 diabetes mellitus without complications (principal); E53.8 Deficiency of other specified B group vitamins
CPT/HCPCS: 36415; 80053; 80061; 82607; 84443

== ENCOUNTER → 2022-08-17 | Outpatient (CLI) | payer MEDICARE, SELFPAY ==
--- NOTE | 2022-08-17 13:50 | ECHOD_ITS ---
Reason For Study: MURMUR Procedure This was a 2D Doppler, Color Flow transthoracic echocardiogram. Exam performed in department. Left Ventricle Normal LV size. Moderate concentric left ventricular hypertrophy. Left ventricular systolic function is normal. The estimated ejection fraction is 65 %. Stage 1 diastolic dysfunction. No regional wall motion abnormalities noted. Right Ventricle Normal RV size. Normal systolic function. Atria The left atrium is mildly enlarged. Normal right atrium. Bubble contrast study negative for right to left interatrial shunt. Mitral Valve Normal mitral valve. Tricuspid Valve Normal tricuspid valve. Mild tricuspid valve insufficiency. Pulmonary artery systolic pressure is 36 mmHg. Aortic Valve Trisinus/trileaflet aortic valve. Moderate focal aortic valve calcification. Peak aortic valve gradient 43 mmHg. Mean aortic valve gradient 26 mmHg. Mild (1+) aortic valve insufficiency. Pulmonic Valve Normal pulmonic valve. Great Vessels Normal aortic root. The pulmonary artery is normal size. Normal inferior vena cava. Pericardium/Pleural No pericardial effusion. Medication 22 gauge I.V. with prn adaptor inserted into left arm. Performed a rapid injection of agitated mix of 9 cc saline and 1cc air to assess for atrial septal defect. MMode/2D Measurements & Calculations LVIDd: 3.8 cm IVSd: 1.4 cm LVOT diam: 2.0 cm LVIDs: 2.2 cm LVPWd: 1.3 cm RVDd: 4.5 cm FS: 42.3 % LVOT area: 3.2 cm2 Ao root diam: 3.2 cm LAV(MOD-bp): 63.6 ml LVAd ap4: 33.8 cm2 LAV(MOD-bp) Indexed: 32.0 ml/m2 LVLd ap4: 9.2 cm LAV(MOD-sp2): 61.3 ml EDV(MOD-sp4): 101.3 ml LAV(MOD-sp4): 64.6 ml EDV(sp4-el): 104.9 ml LVAs ap4: 17.0 cm2 LVLs ap4: 7.8 cm ESV(MOD-sp4): 33.6 ml ESV(sp4-el): 31.8 ml EF(MOD-sp4): 66.8 % EF(sp4-el): 69.7 % SV(MOD-sp4): 67.6 ml SV(sp4-el): 73.1 ml LA A4 area: 21.8 cm2 LA dimension(2D): 3.5 cm RA A4 area: 16.1 cm2 Time Measurements MV dec time: 0.30 sec Doppler Measurements & Calculations MV E max jaya: 93.8 cm/sec Lat Peak E' Jaya: 7.2 cm/sec Med Peak E' Jaya: 6.9 cm/sec MV A max jaya: 140.1 cm/sec E/E' lat: 13.1 E/E' med: 13.5 MV E/A: 0.67 MV V2 max: 143.9 cm/sec MV P1/2t max jaya: 101.0 cm/sec Ao V2 max: 326.8 cm/sec MV max P.3 mmHg MV P1/2t: 112.5 msec Ao max P.7 mmHg MV V2 mean: 80.7 cm/sec MV dec slope: 262.9 cm/sec2 Ao V2 mean: 241.5 cm/sec MV mean P.0 mmHg MVA(P1/2t): 2.0 cm2 Ao mean P.8 mmHg MV V2 VTI: 37.5 cm Ao V2 VTI: 71.2 cm MVA(VTI): 3.4 cm2 AV (velocity ratio): 0.56 SAMANTHA(I,D): 1.8 cm2 SAMANTHA(V,D): 1.6 cm2 LV V1 max: 157.3 cm/sec SV(LVOT): 128.4 ml PA V2 max: 111.7 cm/sec LV V1 max P.9 mmHg LV V1 mean P.2 mmHg LV V1 mean: 104.2 cm/sec LV V1 VTI: 39.6 cm TR max jaya: 283.3 cm/sec TR max P.1 mmHg ECHO/Echo Complete Interpretation Summary Normal LV size. Moderate concentric left ventricular hypertrophy. Left ventricular systolic function is normal. The estimated ejection fraction is 65 %. Stage 1 diastolic dysfunction. Pulmonary artery systolic pressure is 36 mmHg. Bubble contrast study negative for right to left interatrial shunt. Ordering Physician: Ovidio Oneil Referring Physician: Ovidio Oneil Performed By: Teetee Magaña RDCS
== END | disposition home or self-care (01) ==
PROVIDERS: PCP Family Medicine; Referring Provider Family Medicine; Visit Provider Family Medicine
DX: R01.1 Cardiac murmur, unspecified (principal)
CPT/HCPCS: 93306; A4216

== ENCOUNTER → 2023-11-01 | Outpatient (CLI) | payer MEDICARE, SELFPAY ==
[2023-11-01 12:07] LABS: Hematocrit 42.1 % (40-54); Hemoglobin 12.8 g/dL (13.0-16.5); Mean Corp Hgb Conc 30.4 g/dL (32-36); Mean Corpuscular Hgb 26.3 pg (27.0-32.0); Mean Corpuscular Volume 86.4 fL (80-94); Mean Platelet Vol. 11.1 fl (6.2-12.0); Platelet Count 235 K/mm3 (150-450); RBC Distribution Width CV 14.4 % (11.6-14.6); RBC Distribution Width SD 45.1 fl (35.1-43.9); Red Blood Count 4.87 M/mm3 (4.6-6.2); White Blood Count 7.5 K/mm3 (4.4-11.0)
[2023-11-01 12:26] LABS: Vitamin B12 487 pg/mL (211-911); Vitamin D,25 Hydroxy 40.9 ng/mL
[2023-11-01 12:34] LABS: ALB/GLOB Ratio 1.1 RATIO (0.9-2.4); AST(SGOT) 16 U/L (15-37); Alanine Aminotransfer ALT/SGPT 22 U/L (16-61); Albumin, Serum 4.1 g/dL (3.2-5.0); Alkaline Phosphatase 63 U/L (45-117); Anion Gap 3 (5-15); BUN 29 mg/dL (7-18); BUN/Creat Ratio 26.1 RATIO (10-20); Calcium,Total 8.9 mg/dL (8.5-10.1); Chloride 105 mmol/L (98-107); Cholesterol 164 mg/dL (200); Creatinine, Serum 1.11 mg/dL (0.70-1.30); EST Glomerular Filtration Rate 68 mL/min (>60); Est Glom Filt Rate - Afr Amer 82 mL/min (>60); Globulin 3.6 g/dL (2.2-4.2); Glucose 145 mg/dL (74-106); High Density Lipoprotein 45 mg/dL; Iron 53 ug/dL (65-175); Potassium 4.1 mmol/L (3.5-5.1); Protein, Total 7.7 g/dL (6.4-8.2); Sodium Level 138 mmol/L (136-145); Thyroid Stim Hormone (TSH) 0.99 uIU/mL (0.358-3.74); Triglycerides 124 mg/dL; Very Low Density Lipoprotein 25 mg/dL (5-40)
== END | disposition home or self-care (01) ==
LOC: MFPLAB 09:31
PROVIDERS: PCP Family Medicine; Visit Provider Family Medicine
DX: E11.65 Type 2 diabetes mellitus with hyperglycemia (principal); E11.22 Type 2 diabetes mellitus with diabetic chronic kidney disease; E53.8 Deficiency of other specified B group vitamins
CPT/HCPCS: 36415; 80053; 80061; 82306; 82607; 83540; 84443; 85027

== ENCOUNTER → 2024-03-27 | Outpatient (CLI) | payer MEDICARE, SELFPAY ==
--- NOTE | 2024-03-27 09:07 | STRESSREP ---
Stress Test Report Exercise myocardial perfusion stress test. 78-year-old man with a history of chest pain Stress protocol: Resting EKG demonstrates normal sinus rhythm with a right bundle branch block and a rate of 71 bpm resting blood pressure is 138/70 mmHg. The patient exercised according to the regular Maksim protocol for a total duration of 6 minutes attaining a maximum heart rate of 142 bpm which was 101 of maximum predicted heart rate; the maximum workload was 7 metabolic equivalents. At rest there were no ST or T wave changes noted to suggest ischemia and at peak exercise approximately [address] depression was noted in lead V4, V5 and V6 suggestive of ischemia. Patient also experienced mild shortness of breath and chest pressure with exertion. The peak blood pressure was 204/70 mmHg. Rate-pressure product was 25,000. Myocardial perfusion protocol. 11.4 mCi of technetium 99m sestamibi was injected at rest. The patient exercised according to regular Maksim protocol for total duration of 6 minutes and at peak exercise 34.2 mCi of technetium 99m sestamibi was injected stress images were obtained stress and rest images were reconstructed in comparing the short axis vertical long and horizontal long axis. Gated images were also obtained. Perfusion SPECT analysis: Review of the stress images demonstrate normal uptake of tracer noted in all areas of the myocardium. There was a small area in the inferior apical region with mildly reduced perfusion and on the resting images normalized to suggest mild inferoapical ischemia. Gated SPECT analysis: The gated ejection fraction is 74%. Conclusion: Mildly abnormal exercise myocardial perfusion stress test at a moderate workload in the inferoapical region Preserved ejection fraction.
== END | disposition home or self-care (01) ==
LOC: CVS 06:16
PROVIDERS: PCP Family Medicine; Referring Provider Family Medicine; Visit Provider Family Medicine
DX: R07.9 Chest pain, unspecified (principal)
CPT/HCPCS: 78452; 93017; A9500

== ENCOUNTER → 2024-06-11 | Outpatient (CLI) | payer MEDICARE, SELFPAY ==
--- NOTE | 2024-06-11 09:43 | ECHOCS_ITS ---
Reason For Study Reason For Study: Murmur Procedure This was a 2D Doppler, Color Flow transthoracic echocardiogram. Contrast injection was performed. Exam performed in department. Left Ventricle Normal LV size. Left ventricular systolic function is normal. The left ventricular ejection fraction is 70 %. Resting LV gradient 21 mmHg. Valsalva LV gradient 69 mmHg. No regional wall motion abnormalities noted. Right Ventricle Normal RV size. Normal systolic function. Atria The left atrium is mildly enlarged. Normal right atrium. Mitral Valve Systolic anterior motion of the mitral valve. Mild (1+) eccentric mitral valve insufficiency. Tricuspid Valve Normal tricuspid valve. Mild (1+) tricuspid valve insufficiency. Pulmonary artery systolic pressure is 38 mmHg. Aortic Valve Trisinus/trileaflet aortic valve. Moderate focal aortic valve calcification. Peak aortic valve gradient 68 mmHg. Mean aortic valve gradient 34 mmHg. Moderate to severe aortic stenosis. Pulmonic Valve Normal pulmonic valve. Great Vessels Normal aortic root. The pulmonary artery is normal size. Inferior vena cava collapse with respiration. Pericardium/Pleural No pericardial effusion. Medication 22 gauge I.V. with prn adaptor inserted into right arm. Diluted definity 1.5ml given slow IV push to enhance endocardial definition. MMode/2D Measurements & Calculations LVIDd: 5.2 cm IVSd: 1.1 cm LVOT diam: 2.0 cm LVIDs: 2.8 cm LVPWd: 0.99 cm RVDd: 5.1 cm FS: 46.1 % LVOT area: 3.2 cm2 Ao root diam: 4.0 cm asc Aorta Diam: 3.5 cm LAV(MOD- bp): 75.1 ml LAV(MOD- bp) Indexed: 37.1 ml/m2 LAV(MOD- sp2): 70.7 ml LAV(MOD- sp4): 76.8 ml SV(MOD-sp4): 94.2 ml SV(sp4- el): 100.5 ml LVAd ap4: 34.8 cm2 LVLd ap4: 7.9 cm SI(MOD-sp4): 46.6 ml/m2 EDV(MOD-sp4): 122.4 ml EDV(sp4-el): 130.1 ml LVAs ap4: 14.1 cm2 LVLs ap4: 5.7 cm ESV(MOD-sp4): 28.2 ml ESV(sp4-el): 29.6 ml EF(MOD-sp4): 76.9 % EF(sp4-el): 77.3 % Ao sinus diam: 3.[address] Junction: 2.7 cm LA A4 area: 23.5 cm2 LA dimension(2D): 4.0 cm TAPSE: 1.3 cm RA A4 area: 16.0 cm2 Time Measurements MV dec time: 0.35 sec Doppler Measurements & Calculations MV E max jaya: 96.0 cm/sec Lat Peak E' Jaya: 4.4 cm/sec Med Peak E' Jaya: 7.0 cm/sec MV A max jaya: 140.0 cm/sec E/E' lat: 21.8 E/E' med: 13.7 MV E/A: 0.69 MV V2 max: 162.7 cm/sec MV P1/2t max jaya: 107.0 cm/sec Ao V2 max: 410.5 cm/sec MV max P.6 mmHg MV P1/2t: 120.2 msec Ao max P.4 mmHg MV V2 mean: 75.7 cm/sec MV dec slope: 260.8 cm/sec2 Ao V2 mean: 266.9 cm/sec MV mean P.8 mmHg Ao mean P.6 mmHg MV V2 VTI: 42.9 cm MVA(P1/2t): 1.8 cm2 Ao V2 VTI: 82.8 cm MVA(VTI): 3.0 cm2 AV (velocity ratio): 0.48 SAMANTHA(I,D): 1.6 cm2 SAMANTHA(V,D): 1.3 cm2 LV V1 max: 167.6 cm/sec SV(LVOT): 128.5 ml PA V2 max: 115.7 cm/sec LV V1 max P.2 mmHg LV V1 mean P.8 mmHg LV V1 mean: 120.3 cm/sec LV V1 VTI: 39.7 cm TR max jaya: 294.2 cm/sec TR max P.6 mmHg ECHO/Echo Complete W/ Contrast Interpretation Summary Normal LV size. Left ventricular systolic function is normal. The left ventricular ejection fraction is 70 %. Resting LV gradient 21 mmHg. Mean aortic valve gradient 34 mmHg. Moderate to severe aortic stenosis. Valsalva LV gradient 69 mmHg. Contrast injection was performed. Ordering Physician: Ravinder Forman Referring Physician: Ravinder Forman Performed By: Clark Mccrary RCS
--- NOTE | 2024-06-11 09:43 | RAD_ITS ---
PROCEDURE: CHEST PA AND LATERAL (RADCXR), 06/11/2024 REASON FOR EXAM: CHEST PAIN TECHNIQUE: PA and lateral views of the chest were obtained. COMPARISON: None FINDINGS: Heart: Unremarkable. Mediastinum: Mild calcific atherosclerosis in the arch. Lungs/pleura: Mild interstitial prominence in the lung bases. Mild airspace disease in the LEFT costophrenic sulcus and peripheral mid to lower RIGHT lung, vaguely nodular on the RIGHT. No clear correlate on the lateral view for this finding. No effusion or visible pneumothorax. Calcified granulomas. Bones: Demineralization. Lines and support devices: None. RAD/Chest PA and Lateral IMPRESSION: 1. Question trace bibasilar interstitial prominence which could reflect minimal edema or chronic interstitial abnormality in the absence of priors. This could alternatively reflect atelectasis/scarring. 2. Recommend outpatient CT chest for a small vaguely nodular opacity in the per ipheral RIGHT mid to lower lung. Comparison with any available outside imaging may also be helpful for further delineation or to establish stability. 3. Additional description as above. Reading Location: [id number]
[2024-06-11 11:23] LABS: Absolute Lymphocyte Count 3.33 X10^3/uL (0.83-4.51); Absolute Neutrophil Count 6.6 X10^3/uL (2.0-7.7); Basophil# 0.09 X10^3/uL; Basophil% 0.8 % (0-1); Eosinophil# 0.14 X10^3/uL; Eosinophils% 1.3 % (0-5); Hematocrit 48.3 % (40-54); Hemoglobin 16.4 g/dL (13.0-16.5); Lymphocyte # 3.33 X10^3/ul (0.83-4.51); Lymphocyte % 30.7 % (19-41); Mean Corpuscular Hgb 30.1 pg (27.0-32.0); Mean Corpuscular Volume 88.6 fL (80-94); Monocyte# 0.67 X10^3/uL; Monocyte% 6.2 % (0-10); NRBC Flagged by Analyzer 0 % (0-5); Neutrophil # 6.56 X10^3/uL (2.7-7.7); Neutrophil % 60.6 % (47-70); Platelet Count 238 K/mm3 (150-450); RBC Distribution Width CV 13.8 % (11.6-14.6); RBC Distribution Width SD 44.5 fl (35.1-43.9); Red Blood Count 5.45 M/mm3 (4.6-6.2); White Blood Count 10.8 K/mm3 (4.4-11.0)
[2024-06-11 12:19] LABS: Anion Gap 13 (5-15); BUN 24 mg/dL (4-19); BUN/Creat Ratio 19.2 RATIO (10-20); Calcium,Total 9.6 mg/dL (7.6-11.0); Carbon Dioxide 25.3 mmol/L (21.0-32.0); Chloride 103 mmol/L (98-108); Creatinine, Serum 1.24 mg/dL (0.70-1.20); EST Glomerular Filtration Rate 59 (>60); Glucose 115 mg/dL (70-99); Potassium 4.1 mmol/L (3.3-5.1); Sodium Level 142 mmol/L (133-145)
== END | disposition home or self-care (01) ==
PROVIDERS: PCP Family Medicine; Referring Provider Internal Medicine Cardiovascular Disease; Visit Provider Internal Medicine Cardiovascular Disease
DX: R07.9 Chest pain, unspecified (principal); I35.0 Nonrheumatic aortic (valve) stenosis
CPT/HCPCS: 36415; 71046; 80048; 85025; 93306; Q9957; A4216; C8929

== ENCOUNTER 2024-06-19 06:52 | Day surgery (SDC) | payer MEDICARE, SELFPAY ==
[2024-06-18 08:54] VITALS: BMI 24.0
--- NOTE | 2024-06-19 16:27 | CL.D_ITS ---
Patient Name: YAIR VINCENT Study Date: 06/19/2024 Performing: Ravinder Forman MD Ht: 72 inches 182.88 cm : 1945 Wt: 175.2 lbs 79.37 kg Age: 78 Gender: male BSA: 2.01 PROCEDURE(S) PERFORMED [id number])LHC/COR/LV CLINICAL PROFILE AND INDICATIONS Indications: Suspected CAD, Valvular Disease, Cardiomyopathy Heart Failure: None Stress/Imaging Stress/Image Study Performed: No CAD Presentations: Stable angina. CONCLUSIONS Severe disease noted of the proximal left anterior descending artery and ramus medianus. 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 The risks and benefits of the procedure as well as a full description of our services here and current unavailability of surgical backup were fully explained to the patient and/or their significant other prior to the catheterization. The Timeout was completed, verifying the correct patient and procedure. The patient's procedural site was prepped and draped in the usual fashion. Local anesthetic was given subcutaneously to right radial region with Lidocaine 2%. Using a modified Seldinger technique, arterial access was obtained via the right radial artery, a 6Fr sheath was inserted. Left Coronary Artery selective angiography was performed in multiple views using a 5 Fr. 4.0 [place] catheter. Right Coronary Artery selective angiography was then performed in multiple views using a 5 Fr. 4.0 [place] catheter. Left Ventriculography was performed in PEREZ projection using a 5 Fr. [place] catheter. LV to AO pullback pressures were then recorded.The arterial sheath was pulled and a TR Band was applied for hemostasis 8 ml of air CORONARY ANGIOGRAPHY DOMINANCE: Right Dominant LEFT HEART ASSESSMENT Left Ventricular Ejection Fraction: by LV Gram 80With distal chamber obliteration % Normal LV wall motion Normal Left Ventricular systolic function Cardiomyopathy: Hypertrophic LEFT MAIN: Angiographically normal LEFT ANTERIOR DESCENDING ARTERY: Proximal eccentric 70 to 80% stenosis with mild mid and distal vessel disease. CIRCUMFLEX ARTERY: Mild luminal irregularities RAMUS: Bifurcating proximal 70% stenosis noted in a medium size vessel. RIGHT CORONARY ARTERY: Mild luminal irregularities less than 30% VALVE FINDINGS: Aortic Valve Stenosis - moderate Aortic Valve Calcification - moderate Mitral Valve Insufficiency - Grade 2 COMPLICATIONS No Complications PROCEDURE MEDICATIONS Fentanyl 50 mcg IV Versed 1 mg IV Versed 1 mg IV Oxygen: 2 L/min via nasal cannula Heparin given IA 06/19/2024 07:56:28 Verapamil 2.5mg, Ntg 100mcgs, 3000 units of Heparin given IA 06/19/2024 07:56:28 SUMMARY OF HEMODYNAMIC DATA Time AIR REST ECG 07:11:42 AO 118/64 (86) SA 08:09:13 AO 106/55 (76) 08:10:57 LV 158/13, 18 08:21:46 LV 156/19, 23 08:22:34 LV 160/17, 21 08:22:43 LVp 162/19, 22 08:23:01 AOp 129/64 (92) 08:23:08 Signed By Ravinder Forman MD On 06/19/2024 16:26:36 Ravinder Forman MD
== END 2024-06-19 10:00 | disposition home or self-care (01) ==
PROVIDERS: PCP Family Medicine; Referring Provider Internal Medicine Cardiovascular Disease; Visit Provider Internal Medicine Cardiovascular Disease
DX: R07.9 Chest pain, unspecified (principal); I42.2 Other hypertrophic cardiomyopathy; E11.9 Type 2 diabetes mellitus without complications; I20.9 Angina pectoris, unspecified; I35.0 Nonrheumatic aortic (valve) stenosis; E78.00 Pure hypercholesterolemia, unspecified; I10 Essential (primary) hypertension; R42 Dizziness and giddiness; R06.02 Shortness of breath; Z79.82 Long term (current) use of aspirin
CPT/HCPCS: 93458; 99152; 99153; Q9967; C1769; C1894

== ENCOUNTER 2024-08-22 08:00 | Outpatient (RCR) | payer MEDICARE, SELFPAY ==
[2024-08-15 14:36] VITALS: BMI 24.0
== END 2024-08-23 23:59 ==
LOC: CR 08:00
PROVIDERS: PCP Family Medicine
DX: Z95.5 Presence of coronary angioplasty implant and graft (principal); E11.9 Type 2 diabetes mellitus without complications; Z71.3 Dietary counseling and surveillance
CPT/HCPCS: 93798

== ENCOUNTER → 2024-08-22 | Outpatient (CLI) | payer MEDICARE, SELFPAY ==
[2024-08-15 14:36] VITALS: BMI 24.0
[2024-08-22 11:17] LABS: Microalbumin,Random Urine 75.8 mg/L (NO RANGE EST.); Microalbumin:Creatinine Ratio 587.6 mg/g CRE
[2024-08-22 11:18] LABS: ALB/GLOB Ratio 1.8 RATIO (0.9-2.4); AST(SGOT) 25 U/L (<=37); Alanine Aminotransfer ALT/SGPT 24 U/L (<=46); Albumin, Serum 4.2 g/dL (3.4-4.8); Alkaline Phosphatase 61 U/L (40-129); Anion Gap 14 (5-15); BUN 20 mg/dL (4-19); BUN/Creat Ratio 15.4 RATIO (10-20); Calcium,Total 8.9 mg/dL (7.6-11.0); Chloride 102 mmol/L (98-108); Cholesterol 95 mg/dL (<=200); Creatinine, Serum 1.29 mg/dL (0.70-1.20); EST Glomerular Filtration Rate 56 (>60); Globulin 2.3 g/dL (2.2-4.2); Glucose 153 mg/dL (70-99); High Density Lipoprotein 34 mg/dL; Low Density Lipoprotein Calc. 32 mg/dL; Potassium 4.3 mmol/L (3.3-5.1); Protein, Total 6.5 g/dL (5.9-8.4); Sodium Level 137 mmol/L (133-145); Total Bilirubin 0.69 mg/dL (0.00-1.30); Triglycerides 145 mg/dL; Very Low Density Lipoprotein 29 mg/dL (5-40); cholesterol:hdl ratio screen 2.81
== END | disposition home or self-care (01) ==
LOC: LAB 09:14
PROVIDERS: PCP Family Medicine; Referring Provider Family Medicine; Visit Provider Family Medicine
DX: E11.65 Type 2 diabetes mellitus with hyperglycemia (principal)
CPT/HCPCS: 36415; 80053; 80061; 82043; 82570

== ENCOUNTER 2024-09-19 08:00 | Outpatient (RCR) | payer MEDICARE, SELFPAY ==
[2024-08-15 14:36] VITALS: BMI 24.0
--- NOTE | 2024-09-12 07:01 | CR.ITP_ITS ---
Exercise - Initial Assessment Visit Session #:: 7 Physician Prescribed Exercise Modalities: Treadmill, Schwinn Airdyne AD-7 and SciFit Stepper Nutrition - Initial Assessment Weight Mgt (Other Care) Height: 6 ft Weight:: 173 lb 8 oz BMI: 23.5 Psychosocial - Initial Assess Target Goals Target Goals Referral to Behavioral Health PS - Interventions: Yes: Attend Stress Management Classes Patient Health Questionnaire PHQ-9 Screening 30-Day Re-eval Assessment: 1. Little interest or pleasure in doing things: Not at all 2. Feeling down, depressed, or hopeless: Not at all 3. Trouble falling or staying asleep, or sleeping too much: Several days 4. Feeling tired or having little energy: Not at all 5. Poor appetite or overeating: Not at all 6. Feeling bad about yourself -- or that you are a failure or have let yourself or your family down: Not at all 7. Trouble concentrating on things, such as reading the newspaper or watching television: Not at all 8. Moving or speaking so slowly that other people could have noticed. Or the opposite - being so fidgety or restless that you have been moving around a lot more than usual: Not at all 9. Thoughts that you would be better off , or of hurting yourself in some way: Not at all How difficult have these problems made it for you to do your work, take care of things at home, or get along with other people?: Not difficult at all Total Score: 1 Nutrition Survey Nutrition Survey Instructions Scoring Instructions Exercise - 30-day Assessment Visit Date of Eval: 09/12/24 Session #:: 7 Physician Prescribed Exercise Modalities: Treadmill, Schwinn Airdyne AD-7 and SciFit Stepper Frequency: 2x/week for 18 weeks [36 sessions] Intensity: 60-80% of age predicted maximum heart rate reserve Duration: 30 - 45 minutes Current METSs:: 5.4 Target Heart Rate:: 84-105 Current RPE:: 12-13 Maximum Excercise HR:: 104 Resting Blood Pressure: 118/62 Maximum Exercise Blood Pressure: 182/82 EKG Type: NSR to ST w/BBB ocass PAC, PVC Outcomes & Goals Goals:: Verbalizes understanding of THR, RPE & goal METS by session 6, Documents in home exercise log/reports 30 min aerobic 5 day/wk by DC, Demonstrates accurate pulse taking by DC and Other additional outcome/goals: see below Intervention & Plan Exercise Program Goals: Instruct on personal THR & RPE, Instruct on MET level & personal MET goal, Show patient to take own pulse /validate performance until accurate, Instruct on home exercise and Other additional plan/int Physical Activity Home Exercise Physical Activity - Home Exercise: Safe Exercise, Warm-up, Self-monitoring, Cool-Down, Home Exercise > 30 min Daily and Sitting Time <3 hours/daily Outcomes & Goals Outcomes/Goals: Demonstrates correct Warm-up/exercise Cool-Down (S3) if = 2.5 METs, Verbalizes symptoms of exercise intolerance by Session 3 (S3), Demonstrate safe equipment use (S3) & follows exercise prescrition (6) and Other: See below Intervention & Plan Plan/Intervention: Instruct warm-up & cool-down if exercising at > 2 METs, Instruct on symptoms of exercise intolerance & actions to take, Instruct & monitor on saf, Assess intial functional capacity & safety risk and Other See below 30-day Reassessments 30 day Reassessments:: Progressing Reassessment Notes & Comments:: RPE explained to pt. Pt demonstrates understanding in his daily sessions. Exercise - 60-day Assessment Physician Prescribed Exercise Modalities: Treadmill, Schwinn Airdyne AD-7 and SciFit Stepper Exercise - 90-day Assessment Physician Prescribed Exercise Modalities: Treadmill, Schwinn Airdyne AD-7 and SciFit Stepper Exercise - Final/Discharge Physician Prescribed Exercise Modalities: Treadmill, Schwinn Airdyne AD-7 and SciFit Stepper Nutrition - 30-Day Assessment Program Goals Nutrition Program Goals Patient has diagnosis of Hyperlipidemia (ICD E78)?: Yes Visit Date of Eval: 09/12/24 Session #:: 7 Cholesterol/Lipids (Other Core Measures) Determine presence & major risk factors that modify LDL goal: Hypertension or hypertensive medication, Low HDL cholesterol <40 mg/dL*, Family history of premature CHD in Male < 55 years: female <65 yearsFa and Age men > 45 years; women >/= 55 years Outcomes/Goals: Pt IDs own risk factors & lifestyle modifications by Session 10, Verbalizes symptoms of angina & response by session 3., Pt independently manages and Other Additional Outcomes/Goals: Intervention/Plan: Advocate for lipid panel cholesterol medication if applicable, Instruct on personal lipid levels & lipid goals/NCEP guidelines, Instruct on cholesterol and Other additional plan/int Diabetes (Other Core Measures) Diabetes Type: Diagnosis Type II ICD-10 E11 Insulin dependent injection/pump?: No Non-Insulin Dependent?: Yes Weight Mgt (Other Care) Height: 6 ft Weight:: 173 lb 8 oz BMI: 23.5 Outcomes/Goals: Pt sets, maintains & shows weight loss goal & trend during rehab and Other additional outcomes/goals Intervention/Plan: Instruct on ideal BMI & set weight loss goal w/patient, Assist pt to ID & incorporate diet changes for weight loss by S9, Refer to Structured Weight Loss program as appropriate, Encourage goal of using 250- 300dcal per session for weight loss and Other additional plan/interventions Healthy Eating Habits Will attend diet classes:: Yes Outcomes/Goals:: Consume diet rich in vegs,fruits,whole grain/high fiber,fish,lean meat, Limit sat/trans fats,cholesterol & added salts & sugars and Other additional outcome/goals: Intervention/Plan:: Assess current eating habits and Other Additional plan/interventions 30-day Reassessments:: Progressing Reassessment Notes & Comments:: Pt is scheduled to attend nutrition class. A heart healthy low sodium diet is encouraged. Education Gave educational materials for:: Signs & symptoms of hypoglycemia, Signs & symptoms of hyperglycemia, Relate diabetes to coronary artery disease and Healthy eating Nutrition - 60-Day Assessment Weight Mgt (Other Care) Height: 6 ft Weight:: 173 lb 8 oz BMI: 23.5 Core - 30-Day Assessment Visit Date of Eval: 09/12/24 Session #:: 7 Medication Compliance Preventative Medication(s):: Aspirin, Clopidogrel/P2Y12 inhibit, Statin/lipid and Beta zena H/O mental health issues: depression, anxiety, or addiction?: No Doesn’t believe in the benefits of treatment?: No Believes medications are unnecessary or harmful?: No Has a concern about medication side effects?: No Expresses concern over the cost of medications?: No Outcomes/Goals: Verbalizes medications,desired effect & common side effects @ DC, Pt self-reports following medication regimen, Keeps card in wallet w/medications listed by DC and Other additional outcome/goals: Interventions/plans: Instruct on medication effects & side effects, Review medication list w/patient every two weeks, Instruct importance of taking meds as ordered & assist problem solving and Other additional 30-day Reassessments:: Progressing Reassessment Notes & Comments:: Pt taking his meds. Will continue to monitor. Tobacco Use Tobacco Use: Non-smoker Hypertension Hypertension Diagnosis:: Hypertension ICD-10 I10 Resting Blood Pressure:: 118/62 [place] [employer] Hypertension Guidelines Peak Exercise Blood Pressure:: 182/82 Outcomes/Goals: Able to verbalize/achieve optimal blood pressure <130/80, Incorporates diet changes & exercise for blood pressure control by DC and Other additional outcomes/goals Interventions/plan: Instruct on optimal blood pressure, hypertension & medications, Instruct on effects of sodium, alcohol, stress, exercise &hypertension and Other additional plan/interventions 30 day Reassessments:: Progressing Reassessment Notes & Comments:: Pt's BP's are within AHA normal limits on most days. Will continue to monitor and send report to pt's physician if necessary. Tobacco Cessation Referral Smoking Cessation Referral:: No Individual Education/Counseling:: No Education Schedule Given:: Yes Psychosocial - 30-Day Assess VIsit Date of Eval: 09/12/24 Session #:: 7 History of previous Mental disease:: No Target Goals Target Goals Psychosocial Test Tool Used:: PHQ-9 Questionnaire phq-9 Severity Total Score:: 1 Referral to Behavioral Health PS - Interventions: Yes: Attend Stress Management Classes Outcomes/Goals: See list Psychosocial Outcomes/Goals:: ID's personal stressors & 2 strategies to manage stress by discharge and Other Additional outcome/goals: Intervention/Plan: See List Interventions/Plan:: Assess stressors,coping strategies & signs of derpression on admission, Instruct/assist pt to develop coping & personal stress Mgt strategies, Refer to Behavioral Health if appropriate, Refer to Physician if appropriate, Instruct patient to recognize signs & symptoms of depression, Instruct patient to recog and Other additional plan/intervention 30-day Reassessments: 30 day Reassessments:: Met Reassessment Notes & Comments:: Pt denies any psychosocial issues at this time. Pt to attend stress management class. Will continue to monitor. Psychosocial - 60-Day Assess Target Goals Target Goals Referral to Behavioral Health PS - Interventions: Yes: Attend Stress Management Classes Outcomes/Goals: See list Psychosocial Outcomes/Goals:: ID's personal stressors & 2 strategies to manage stress by discharge and Other Additional outcome/goals: Psychosocial - 90-Day Assess Target Goals Target Goals Referral to Behavioral Health PS - Interventions: Yes: Attend Stress Management Classes Psychosocial - Final Assessmen Target Goals Target Goals Referral to Behavioral Health PS - Interventions: Yes: Attend Stress Management Classes Nutrition - 90-Day Assessment Weight Mgt (Other Care) Height: 6 ft Weight:: 173 lb 8 oz BMI: 23.5 Nutrition - Final Assessment Weight Mgt (Other Care) Height: 6 ft Weight:: 173 lb 8 oz BMI: 23.5
[2024-09-12 07:12] VITALS: BP 118/62; BMI 23.5
== END 2024-09-22 23:59 ==
LOC: CR 08:00
PROVIDERS: PCP Family Medicine
DX: Z95.5 Presence of coronary angioplasty implant and graft (principal)
CPT/HCPCS: 93798; 97802

== ENCOUNTER 2024-10-22 08:00 | Outpatient (RCR) | payer MEDICARE, SELFPAY ==
[2024-09-12 07:12] VITALS: BMI 23.5
--- NOTE | 2024-10-10 07:06 | PCM.CR.ITP ---
Exercise - Initial Assessment Physician Prescribed Exercise Modalities: Treadmill, Schwinn Airdyne AD-7 and SciFit Stepper Nutrition - Initial Assessment Weight Mgt (Other Care) Height: 6 ft Weight:: 172 lb 8 oz BMI: 23.3 Core - Initial Assessment Hypertension Resting Blood Pressure:: 106/58 [employer] Hypertension Guidelines Psychosocial - Initial Assess Target Goals Target Goals Referral to Behavioral Health PS - Interventions: Yes: Attend Stress Management Classes Patient Health Questionnaire PHQ-9 Screening 60-Day Re-eval Assessment: 1. Little interest or pleasure in doing things: Not at all 2. Feeling down, depressed, or hopeless: Not at all 3. Trouble falling or staying asleep, or sleeping too much: Several days 4. Feeling tired or having little energy: Not at all 5. Poor appetite or overeating: Not at all 6. Feeling bad about yourself -- or that you are a failure or have let yourself or your family down: Not at all 7. Trouble concentrating on things, such as reading the newspaper or watching television: Not at all 8. Moving or speaking so slowly that other people could have noticed. Or the opposite - being so fidgety or restless that you have been moving around a lot more than usual: Not at all 9. Thoughts that you would be better off , or of hurting yourself in some way: Not at all How difficult have these problems made it for you to do your work, take care of things at home, or get along with other people?: Not difficult at all Total Score: 1 Nutrition Survey Nutrition Survey Instructions Scoring Instructions Exercise - 30-day Assessment Physician Prescribed Exercise Modalities: Treadmill, Schwinn Airdyne AD-7 and SciFit Stepper Exercise - 60-day Assessment Visit Date of Eval: 10/10/24 Session #:: 15 Physician Prescribed Exercise Modalities: Treadmill, Schwinn Airdyne AD-7 and SciFit Stepper Frequency: 3x/week for 12 weeks [36 sessions] Intensity: 60-80% of age predicted maximum heart rate reserve Duration: 30 - 45 minutes Current METSs:: 7.7 Target Heart Rate:: 84-105 Current RPE:: 12.5-13 Maximum Excercise HR:: 106 Resting Blood Pressure: 102/48 Maximum Exercise Blood Pressure: 148/70 EKG Type: NSR to ST w/ BBB, occas pac Outcomes & Goals Goals:: Verbalizes understanding of THR, RPE & goal METS by session 6, Documents in home exercise log/reports 30 min aerobic 5 day/wk by DC, Demonstrates accurate pulse taking by DC and Other additional outcome/goals: see below Intervention & Plan Exercise Program Goals: Instruct on personal THR & RPE, Instruct on MET level & personal MET goal, Show patient to take own pulse /validate performance until accurate, Instruct on home exercise and Other additional plan/int Physical Activity Home Exercise Physical Activity - Home Exercise: Safe Exercise, Warm-up, Self-monitoring, Cool-Down, Home Exercise > 30 min Daily and Sitting Time <3 hours/daily Outcomes & Goals Outcomes/Goals: Demonstrates correct Warm-up/exercise Cool-Down (S3) if = 2.5 METs, Verbalizes symptoms of exercise intolerance by Session 3 (S3), Demonstrate safe equipment use (S3) & follows exercise prescrition (6) and Other: See below Intervention & Plan Plan/Intervention: Instruct warm-up & cool-down if exercising at > 2 METs, Instruct on symptoms of exercise intolerance & actions to take, Instruct & monitor on saf, Assess intial functional capacity & safety risk and Other See below 30-day Reassessments 30 day Reassessments:: Progressing Reassessment Notes & Comments:: Proper warm up and cool down explained. Pt demonstrates understanding in his daily sessions. Exercise - 90-day Assessment Physician Prescribed Exercise Modalities: Treadmill, Schwinn Airdyne AD-7 and SciFit Stepper Exercise - Final/Discharge Physician Prescribed Exercise Modalities: Treadmill, Schwinn Airdyne AD-7 and SciFit Stepper Nutrition - 30-Day Assessment Weight Mgt (Other Care) Height: 6 ft Weight:: 172 lb 8 oz BMI: 23.3 Nutrition - 60-Day Assessment Program Goals Nutrition Program Goals Patient has diagnosis of Hyperlipidemia (ICD E78)?: Yes Visit Date of Eval: 10/10/24 Session #:: 15 Cholesterol/Lipids (Other Core Measures) Determine presence & major risk factors that modify LDL goal: Hypertension or hypertensive medication, Low HDL cholesterol <40 mg/dL*, Family history of premature CHD in Male < 55 years: female <65 yearsFa and Age men > 45 years; women >/= 55 years Outcomes/Goals: Pt IDs own risk factors & lifestyle modifications by Session 10, Verbalizes symptoms of angina & response by session 3., Pt independently manages and Other Additional Outcomes/Goals: Intervention/Plan: Advocate for lipid panel cholesterol medication if applicable, Instruct on personal lipid levels & lipid goals/NCEP guidelines, Instruct on cholesterol and Other additional plan/int 30-day Reassessments:: Met Reassessment Notes & Comments:: Pt has met with our dietitian on 09/17/24 Diabetes (Other Core Measures) Diabetes Type: Diagnosis Type II ICD-10 E11 Insulin dependent injection/pump?: No Non-Insulin Dependent?: Yes Weight Mgt (Other Care) Height: 6 ft Weight:: 172 lb 8 oz BMI: 23.3 Diagnosis Overweight/Obesity BMI> 30% ICD-10 E66: No Diagnosis High BMI/Morbid Obesity BMI> 35% ICD-10 Z68: No Outcomes/Goals: Pt sets, maintains & shows weight loss goal & trend during rehab and Other additional outcomes/goals Intervention/Plan: Instruct on ideal BMI & set weight loss goal w/patient, Assist pt to ID & incorporate diet changes for weight loss by S9, Refer to Structured Weight Loss program as appropriate, Encourage goal of using 250-300dcal per session for weight loss and Other additional plan/interventions Healthy Eating Habits Will attend diet classes:: Yes Outcomes/Goals:: Consume diet rich in vegs,fruits,whole grain/high fiber,fish,lean meat, Limit sat/trans fats,cholesterol & added salts & sugars and Other additional outcome/goals: Intervention/Plan:: Assess current eating habits and Other Additional plan/interventions 30-day Reassessments:: Progressing Reassessment Notes & Comments:: Pt has met with our dietitian. Pt will attend nutrition class as well. Heart healthy low sodium diet encouraged. Education Gave educational materials for:: Signs & symptoms of hypoglycemia, Signs & symptoms of hyperglycemia, Relate diabetes to coronary artery disease and Healthy eating Core - Final Assessment Hypertension Resting Blood Pressure:: 106/58 [employer] Hypertension Guidelines Core - 60-Day Assessment Medication Compliance Preventative Medication(s):: Aspirin, Clopidogrel/P2Y12 inhibit, Statin/lipid and Beta zena H/O mental health issues: depression, anxiety, or addiction?: No Doesn?t believe in the benefits of treatment?: No Believes medications are unnecessary or harmful?: No Has a concern about medication side effects?: No Expresses concern over the cost of medications?: No Outcomes/Goals: Verbalizes medications,desired effect & common side effects @ DC, Pt self-reports following medication regimen, Keeps card in wallet w/medications listed by DC and Other additional outcome/goals: Interventions/plans: Instruct on medication effects & side effects, Review medication list w/patient every two weeks, Instruct importance of taking meds as ordered & assist problem solving and Other additional 30-day Reassessments:: Met Reassessment Notes & Comments:: Pt taking meds as prescribed. Tobacco Use Tobacco Use: Non-smoker Hypertension Hypertension Diagnosis:: Hypertension ICD-10 I10 Resting Blood Pressure:: 102/48 Resting Blood Pressure:: 106/58 [employer] Hypertension Guidelines Peak Exercise Blood Pressure:: 148/70 Outcomes/Goals: Able to verbalize/achieve optimal blood pressure <130/80, Incorporates diet changes & exercise for blood pressure control by DC and Other additional outcomes/goals Interventions/plan: Instruct on optimal blood pressure, hypertension & medications, Instruct on effects of sodium, alcohol, stress, exercise &hypertension and Other additional plan/interventions 30 day Reassessments:: Met Reassessment Notes & Comments:: Pt's BP's are within AHA normal limits. Will continue to monitor and report to physician if necessary. Tobacco Cessation Referral Smoking Cessation Referral:: No Individual Education/Counseling:: No Education Schedule Given:: Yes Psychosocial - 30-Day Assess Target Goals Target Goals Referral to Behavioral Health PS - Interventions: Yes: Attend Stress Management Classes Outcomes/Goals: See list Psychosocial Outcomes/Goals:: ID's personal stressors & 2 strategies to manage stress by discharge and Other Additional outcome/goals: Psychosocial - 60-Day Assess VIsit Date of Eval: 10/10/24 Session #:: 15 History of previous Mental disease:: No Target Goals Target Goals Psychosocial Test Tool Used:: PHQ-9 Questionnaire phq-9 Severity See PHQ-9 Score: 1 Referral to Behavioral Health PS - Interventions: Yes: Attend Stress Management Classes Outcomes/Goals: See list Psychosocial Outcomes/Goals:: ID's personal stressors & 2 strategies to manage stress by discharge and Other Additional outcome/goals: Intervention/Plan: See List Interventions/Plan:: Assess stressors,coping strategies & signs of derpression on admission, Instruct/assist pt to develop coping & personal stress Mgt strategies, Refer to Behavioral Health if appropriate, Refer to Physician if appropriate, Instruct patient to recognize signs & symptoms of depression, Instruct patient to recog and Other additional plan/intervention 30-day Reassessments: 30 day Reassessments:: Met Reassessment Notes & Comments:: Pt denies any psychosocial issues at this time. Pt to attend stress management class. Psychosocial - 90-Day Assess Target Goals Target Goals Referral to Behavioral Health PS - Interventions: Yes: Attend Stress Management Classes Psychosocial - Final Assessmen Target Goals Target Goals Referral to Behavioral Health PS - Interventions: Yes: Attend Stress Management Classes Nutrition - 90-Day Assessment Weight Mgt (Other Care) Height: 6 ft Weight:: 172 lb 8 oz BMI: 23.3 Nutrition - Final Assessment Weight Mgt (Other Care) Height: 6 ft Weight:: 172 lb 8 oz BMI: 23.3
[2024-10-10 07:18] VITALS: BP 102/48; BP 106/58; BMI 23.3
== END 2024-10-23 23:59 ==
LOC: CR 08:00
PROVIDERS: PCP Family Medicine
DX: Z95.5 Presence of coronary angioplasty implant and graft (principal)
CPT/HCPCS: 93798

== ENCOUNTER 2024-11-21 08:00 | Outpatient (RCR) | payer MEDICARE, SELFPAY ==
[2024-10-10 07:18] VITALS: BMI 23.3
--- NOTE | 2024-11-07 07:09 | CR.ITP_ITS ---
Exercise - Initial Assessment Physician Prescribed Exercise Modalities: Treadmill, Schwinn Airdyne AD-7 and SciFit Stepper Nutrition - Initial Assessment Weight Mgt (Other Care) Height: 6 ft Weight:: 174 lb BMI: 23.6 Psychosocial - Initial Assess Target Goals Target Goals Referral to Behavioral Health PS - Interventions: Yes: Attend Stress Management Classes Patient Health Questionnaire PHQ-9 Screening 90-Day Re-eval Assessment: 1. Little interest or pleasure in doing things: Not at all 2. Feeling down, depressed, or hopeless: Not at all 3. Trouble falling or staying asleep, or sleeping too much: Several days 4. Feeling tired or having little energy: Not at all 5. Poor appetite or overeating: Not at all 6. Feeling bad about yourself -- or that you are a failure or have let yo urself or your family down: Not at all 7. Trouble concentrating on things, such as reading the newspaper or watching television: Not at all 8. Moving or speaking so slowly that other people could have noticed. Or the opposite - being so fidgety or restless that you have been moving around a lot more than usual: Not at all 9. Thoughts that you would be better off , or of hurting yourself in some way: Not at all How difficult have these problems made it for you to do your work, take care of things at home, or get along with other people?: Not difficult at all Total Score: 1 Nutrition Survey Nutrition Survey Instructions Scoring Instructions Exercise - 30-day Assessment Physician Prescribed Exercise Modalities: Treadmill, Schwinn Airdyne AD-7 and SciFit Stepper Exercise - 60-day Assessment Physician Prescribed Exercise Modalities: Treadmill, Schwinn Airdyne AD-7 and SciFit Stepper Exercise - 90-day Assessment Visit Date of Eval: 11/07/24 Session #:: 23 Physician Prescribed Exercise Modalities: Treadmill, Schwinn Airdyne AD-7 and SciFit Stepper Frequency: 3x/week for 12 weeks [36 sessions] Intensity: 60-80% of age predicted maximum heart rate reserve Duration: 30 - 45 minutes Current METSs:: 8.2 Target Heart Rate:: 84-119 Current RPE:: 13-14 Maximum Excercise HR:: 122 Resting Blood Pressure: 130/62 Maximum Exercise Blood Pressure: 180/62 EKG Type: NSR-ST w/BBB occas PAC, PVC, inverted Twave at times. Outcomes & Goals Goals:: Verbalizes understanding of THR, RPE & goal METS by session 6, Documents in home exercise log/reports 30 min aerobic 5 day/wk by DC, Demonstrates accurate pulse taking by DC and Other additional outcome/goals: see below Intervention & Plan Exercise Program Goals: Instruct on personal THR & RPE, Instruct on MET level & personal MET goal, Show patient to take own pulse /validate performance until accurate, Instruct on home exercise and Other additional plan/int Physical Activity Home Exercise Physical Activity - Home Exercise: Safe Exercise, Warm-up, Self-monitoring, Cool-Down, Home Exercise > 30 min Daily and Sitting Time <3 hours/daily Outcomes & Goals Outcomes/Goals: Demonstrates correct Warm-up/exercise Cool-Down (S3) if = 2.5 METs, Verbalizes symptoms of exercise intolerance by Session 3 (S3), Demonstrate safe equipment use (S3) & follows exercise prescrition (6) and Other: See below Intervention & Plan Plan/Intervention: Instruct warm-up & cool-down if exercising at > 2 METs, Instruct on symptoms of exercise intolerance & actions to take, Instruct & monitor on saf, Assess intial functional capacity & safety risk and Other See below 30-day Reassessments 30 day Reassessments:: Progressing Reassessment Notes & Comments:: Pt has been able to increase his workloads to 8.2 METS. Will continue to encourage and increase workloads a tolerated. Pt is doing very well. Exercise - Final/Discharge Physician Prescribed Exercise Modalities: Treadmill, Schwinn Airdyne AD-7 and SciFit Stepper Nutrition - 30-Day Assessment Weight Mgt (Other Care) Height: 6 ft Weight:: 174 lb BMI: 23.6 Nutrition - 60-Day Assessment Weight Mgt (Other Care) Height: 6 ft Weight:: 174 lb BMI: 23.6 Core - 30-Day Assessment Hypertension [employer] Hypertension Guidelines Reassessment Notes & Comments:: Pt's BP's are within AHA normal limits. Will continue to monitor and report to physician if needed. Core - Final Assessment Hypertension [employer] Hypertension Guidelines Reassessment Notes & Comments:: Pt's BP's are within AHA normal limits. Will continue to monitor and report to physician if needed. Core - 90 Day Assessment Medication Compliance Preventative Medication(s):: Aspirin, Clopidogrel/P2Y12 inhibit, Statin/lipid and Beta zena H/O mental health issues: depression, anxiety, or addiction?: No Doesn?t believe in the benefits of treatment?: No Believes medications are unnecessary or harmful?: No Expresses concern over the cost of medications?: No Outcomes/Goals: Verbalizes medications,desired effect & common side effects @ DC, Pt self-reports following medication regimen, Keeps card in wallet w/medications listed by DC and Other additional outcome/goals: Interventions/plans: Instruct on medication effects & side effects, Review medication list w/patient every two weeks, Instruct importance of taking meds as ordered & assist problem solving and Other additional 30-day Reassessments:: Met Reassessment Notes & Comments:: Pt reports taking meds as prescribed. Tobacco Use Tobacco Use: Non-smoker Hypertension Hypertension Diagnosis:: Hypertension ICD-10 I10 Resting Blood Pressure:: 130/62 [employer] Hypertension Guidelines Peak Exercise Blood Pressure:: 180/62 Outcomes/Goals: Able to verbalize/achieve optimal blood pressure <130/80, Incorporates diet changes & exercise for blood pressure control by DC and Other additional outcomes/goals Interventions/plan: Instruct on optimal blood pressure, hypertension & medications, Instruct on effects of sodium, alcohol, stress, exercise &hypertension and Other additional plan/interventions 30 day Reassessments:: Met Reassessment Notes & Comments:: Pt's BP's are within AHA normal limits. Will continue to monitor and report to physician if needed. Tobacco Cessation Referral Smoking Cessation Referral:: No Individual Education/Counseling:: No Education Schedule Given:: Yes Psychosocial - 30-Day Assess Target Goals Target Goals Referral to Behavioral Health PS - Interventions: Yes: Attend Stress Management Classes Psychosocial - 60-Day Assess Target Goals Target Goals Referral to Behavioral Health PS - Interventions: Yes: Attend Stress Management Classes Psychosocial - 90-Day Assess VIsit Date of Eval: 11/07/24 Session #:: 23 History of previous Mental disease:: No Target Goals Target Goals Psychosocial Test Tool Used:: PHQ-9 Questionnaire phq-9 Severity See PHQ-9 Score: 1 Referral to Behavioral Health PS - Interventions: Yes: Attend Stress Management Classes Outcomes/Goals: See list Psychosocial Outcomes/Goals:: ID's personal stressors & 2 strategies to manage stress by discharge and Other Additional outcome/goals: Intervention/Plan: See List Interventions/Plan:: Assess stressors,coping strategies & signs of derpression on admission, Instruct/assist pt to develop coping & personal stress Mgt strategies, Refer to Behavioral Health if appropriate, Refer to Physician if appropriate, Instruct patient to recognize signs & symptoms of depression, Instruct patient to recog and Other additional plan/intervention 30-day Reassessments: 30 day Reassessments:: Met Reassessment Notes & Comments:: Pt denies any psychosocial issues at this time. Pt to attend stress management class. Will reevaluate every 30 days. Psychosocial - Final Assessmen Target Goals Target Goals Referral to Behavioral Health PS - Interventions: Yes: Attend Stress Management Classes Nutrition - 90-Day Assessment Program Goals Nutrition Program Goals Patient has diagnosis of Hyperlipidemia (ICD E78)?: Yes Visit Date of Eval: 11/07/24 (Nutrition score of 2.) Session #:: 23 Cholesterol/Lipids (Other Core Measures) Determine presence & major risk factors that modify LDL goal: Hypertension or hypertensive medication, Low HDL cholesterol <40 mg/dL*, Family history of premature CHD in Male < 55 years: female <65 yearsFa and Age men > 45 years; women >/= 55 years Outcomes/Goals: Pt IDs own risk factors & lifestyle modifications by Session 10, Verbalizes symptoms of angina & response by session 3., Pt independently manages and Other Additional Outcomes/Goals: Intervention/Plan: Advocate for lipid panel cholesterol medication if applicable, Instruct on personal lipid levels & lipid goals/NCEP guidelines, Instruct on cholesterol and Other additional plan/int Referral to dietitian:: Yes (Pt was seen by our dietitian 09/17/24) 30-day Reassessments:: Met Reassessment Notes & Comments:: Pt was seen by our dietitian 09/17/24. Pt is attending nutrition class as well this week. Low sodium heart healthy diet encouraged. Diabetes (Other Core Measures) Diabetes Type: Diagnosis Type II ICD-10 E11 Insulin dependent injection/pump?: No Non-Insulin Dependent?: Yes 30-day Reassessments:: Met Reassessment Notes & Comments:: Pt was seen by our dietitian 09/17/24. Pt is attending nutrition class as well this week. Low sodium heart healthy diet encouraged. Weight Mgt (Other Care) Height: 6 ft Weight:: 174 lb BMI: 23.6 Diagnosis Overweight/Obesity BMI> 30% ICD-10 E66: No Diagnosis High BMI/Morbid Obesity BMI> 35% ICD-10 Z68: No Outcomes/Goals: Pt sets, maintains & shows weight loss goal & trend during rehab and Other additional outcomes/goals Intervention/Plan: Instruct on ideal BMI & set weight loss goal w/patient, Assist pt to ID & incorporate diet changes for weight loss by S9, Refer to Structured Weight Loss program as appropriate, Encourage goal of using 250- 300dcal per session for weight loss and Other additional plan/interventions Healthy Eating Habits Will attend diet classes:: Yes Outcomes/Goals:: Consume diet rich in vegs,fruits,whole grain/high fiber,fish,lean meat, Limit sat/trans fats,cholesterol & added salts & sugars and Other additional outcome/goals: Intervention/Plan:: Assess current eating habits and Other Additional plan/interventions 30-day Reassessments:: Met Reassessment Notes & Comments:: Pt was seen by our dietitian 09/17/24. Pt is attending nutrition class as well this week. Low sodium heart healthy diet encouraged. Education Gave educational materials for:: Signs & symptoms of hypoglycemia, Signs & symptoms of hyperglycemia, Relate diabetes to coronary artery disease and Healthy eating Nutrition - Final Assessment Weight Mgt (Other Care) Height: 6 ft Weight:: 174 lb BMI: 23.6
[2024-11-07 07:21] VITALS: BP 130/62; BMI 23.6
== END 2024-11-23 23:59 ==
LOC: CR 08:00
PROVIDERS: PCP Family Medicine
DX: Z95.5 Presence of coronary angioplasty implant and graft (principal)
CPT/HCPCS: 93798

== ENCOUNTER 2024-11-26 06:51 | Outpatient (RCR) | payer MEDICARE, SELFPAY ==
[2024-11-07 07:21] VITALS: BMI 23.6
== END 2024-12-23 23:59 ==
LOC: CR 06:51
PROVIDERS: PCP Family Medicine
DX: Z95.5 Presence of coronary angioplasty implant and graft (principal)
CPT/HCPCS: 93798